=== PATIENT | female | born 1955 | race African-American/Black ===

== ENCOUNTER 2021-04-23 11:36 | Inpatient (IN) | payer MEDICARE, MEDICAID ==
[~2021-04-23 11:36] MED LIST: Rocuronium Bromide 10 MG/ML (10ML VIAL) ONE
[2021-04-23] MEDS ORDERED: Rocuronium Bromide 10 MG/ML (10ML VIAL) ONE (11:50)
[2021-04-23 12:03] LABS: #Monocytes 1.2 10x3/uL (0.0-1.1); #Neutrophils 9.5 10x3/uL (1.5-8.4); %Basophils 0.2 % (0.0-2.0); %Lymphocytes 7.3 % (18.0-47.0); %Monocytes 10.5 % (0.0-10.0); %Neutrophils 80.4 % (40.0-75.0); Hemoglobin 13.2 g/dL (12.0-15.5); Mean Corpuscular HGB CONC 32.6 g/dL (32.0-36.0); Mean Corpuscular Volume 98.1 fl (81.6-98.3); Mean Platelet Volume 12.9 fl (7.4-10.4); Platelet Count 237 10x3/uL (150-450); RBC Distribution Width 15.1 % (11.5-14.5); Red Blood Cell (RBC) Count 4.13 10x6/uL (3.90-5.03); White Blood Cell (WBC) Count 11.8 10x3/uL (3.5-10.5)
[2021-04-23] MEDS ORDERED: Acetaminophen 650 MG Suppository ONE (12:13)
[2021-04-23] MEDS ORDERED: Cefepime 2 GM VIAL ONE (12:15)
[2021-04-23] MEDS ORDERED: Propofol 1,000 MG/100 ML VIAL IV ONE ×2 (12:15→15:55)
[2021-04-23] MEDS ORDERED: levETIRAcetam in NS 1,500 MG in Premix Bag 1 BAG IVPB SCH (12:15)
[2021-04-23 12:29] LABS: Magnesium 2.9 mg/dL (1.6-2.6)
[2021-04-23 12:30] LABS: Acetaminophen Less than 6.0 mcg/mL (10.0-30.0); Alcohol Less than 10 mg/dL (Less than 10); Salicylate Less than 8.0 mg/dL (15.0-30.0)
[2021-04-23 12:31] LABS: INR-International Normal Ratio 1.1; PTT 24.8 sec (22.0-33.0)
[2021-04-23 12:34] LABS: ALT (SGPT) 19 U/L (8-55); AST (SGOT) 48 U/L (5-34); Albumin 3.6 g/dL (3.4-4.8); Alkaline Phosphatase 136 U/L (40-110); Anion Gap 33 mmol/L (10-20); BUN (Urea Nitrogen) 41 mg/dL (9.8-20.1); Bilirubin, Total 1.1 mg/dL (0.2-1.2); CK (CPK) 3666 U/L (29-168); Calc. Creatinine Clearance 0 mL/min (70-130); Calcium 9.2 mg/dL (7.8-10.44); Carbon Dioxide 12 mmol/L (23-31); Chloride 96 mmol/L (98-107); Globulin 5.4 g/dL (2.4-3.5); Potassium 5.1 mmol/L (3.5-5.1); Sodium 136 mmol/L (136-145)
[2021-04-23 12:39] LABS: Actual Bicarbonate (HCO3a) 14.8 mEq/L (22-28); CO2 Tension 33.1 mmHg (35.0-45.0); Calcium, Ionized (arterial) 1.18 mmol/L (1.12-1.30); Hemoglobin (Hb) 13.3 g/dL (12.0-16.0); O2 Tension (PaO2), arterial 142.1 mmHg (> 80.0); Potassium - ABG Lab 4.6 mmol/L (3.70-5.30); Puncture Site RRA; pH, Arterial 7.27 (7.35-7.45)
[2021-04-23 12:41] LABS: Glucose 1230 mg/dL (80-115)
[2021-04-23 12:43] LABS: ALV-art Gradient 529.525 mmHg (0-20)
[2021-04-23 13:03] LABS: CKMB 7.8 ng/mL (0-6.6)
[2021-04-23] MEDS ORDERED: INSULIN REGULAR IN 0.9 % NACL 100 UNIT/100 ML BAG ONE (13:48)
[2021-04-23] MEDS ORDERED: Insulin Regular 300 UNITS/3 ML VIAL ONE (13:50)
[2021-04-23 14:02] LABS: Amphetamine Not Detected (NotDetected); Barbiturates Screen Not Detected (NotDetected); Benzodiazepine Screen Not Detected (NotDetected); Cocaine Metabolite Screen Not Detected (NotDetected); Methadone Not Detected (NotDetected); Methamphetamine Not Detected (NotDetected); Opiate Screen Not Detected (NotDetected); Oxycodone Screen Not Detected (NotDetected); Phencyclidine (PCP) Not Detected (NotDetected); THC/Cannabinoid Screen Not Detected (NotDetected); Tricyclic Screen Not Detected (NotDetected)
[2021-04-23] MEDS ORDERED: Fentanyl 100 MCG/2 ML VIAL ONE (14:16)
[2021-04-23 14:28] LABS: Bilirubin Neg (Negative); Blood, Urine 250 (Negative); Clarity Clear (Clear); Glucose, Urine (Dipstick) >=1000 mg/dL (Negative); Ketone, Urine Negative (Negative); Leukocyte Negative (Negative); Nitrite Negative (Negative); Protein, Urine (Dipstick) 100 mg/dl (Neg-Trace); Urobilinogen Normal mg/dL (Less than 2)
[2021-04-23 14:30] LABS: SARS-CoV-2 NAA Rapid Test Not Detected (NotDetected)
[2021-04-23] MEDS ORDERED: Ondansetron PF 4 MG/2 ML Vial IVP PRN (14:34)
[2021-04-23] MEDS ORDERED: Acetaminophen 650 MG Suppository PR PRN (14:34)
[2021-04-23 14:36] LABS: Bacteria/HPF Rare-Few HPF (None Seen); Squamous Epithelial 0-3 HPF (0-3); WBC/HPF 0-3 HPF (0-3)
[2021-04-23] MEDS ORDERED: hydrALAZINE 20 MG/ML VIAL ONE (14:36)
[2021-04-23] MEDS ORDERED: Sodium Chloride 0.9% 1,000 ML IV PRN ×4 (14:53)
[2021-04-23] MEDS ORDERED: Dextrose 5 %-0.45 % NaCl 1,000 ML IV PRN (14:53)
[2021-04-23] MEDS ORDERED: D5 1/2 NS w/20 mEq KCL 1,000 ML IV PRN (14:53)
[2021-04-23] MEDS ORDERED: Electrolyte Replacement Protocol 1 EACH IVPB ONE (14:53)
[2021-04-23] MEDS ORDERED: NS 0.9% w/ 20 MEQ KCL 1,000 ML IV PRN ×2 (14:53)
[2021-04-23 15:06] LABS: Anion Gap 25 mmol/L (10-20); BUN (Urea Nitrogen) 45 mg/dL (9.8-20.1); Calc. Creatinine Clearance 0 mL/min (70-130); Carbon Dioxide 14 mmol/L (23-31); Chloride 102 mmol/L (98-107); Potassium 4.3 mmol/L (3.5-5.1); Sodium 137 mmol/L (136-145)
[2021-04-23 15:07] LABS: Calcium 8.9 mg/dL (7.8-10.44)
[2021-04-23 15:38] LABS: Glucose 1154 mg/dL (80-115)
[2021-04-23] MEDS ORDERED: Metoprolol Tartrate 25 MG TAB PO SCH (16:45)
[2021-04-23 17:44] LABS: Legionella Urinary Ag Negative (Negative); Strep pneumo Urine Ag NEGATIVE (NEGATIVE)
[2021-04-23 17:51] LABS: Glucose 811 mg/dL (80-115)
[2021-04-23] MEDS ORDERED: Norepinephrine 8 MG/0.9% NS 250 ML IVPB SCH (18:00)
[2021-04-23] MEDS ORDERED: Amiodarone In Dextrose 150 MG in Premix Bag 1 BAG IVPB SCH (18:00)
[2021-04-23] MEDS: Amiodarone In Dextrose 360 MG in Premix Bag 1 BAG IVPB SCH (18:19)
[2021-04-23 18:21] LABS: Troponin I 0.317 ng/mL (< 0.028)
[2021-04-23] MEDS ORDERED: Propofol 1,000 MG/100 ML VIAL IV SCH ×2 (18:30→19:30)
[2021-04-23] MEDS: INSULIN REGULAR IN 0.9 % NACL 100 UNIT in Premix Bag 1 BAG IVPB SCH ×2 (18:43→23:24)
[2021-04-23] MEDS: Midazolam In 0.9 % NaCl/PF 100 ML IVPB SCH (18:43)
[2021-04-23] MEDS: Sodium Chloride 0.9% 1,000 ML IV SCH ×2 (18:44→21:00)
[2021-04-23] MEDS ORDERED: levETIRAcetam in NS 1,000 MG in Premix Bag 1 BAG IVPB SCH (18:45)
[2021-04-23 18:54] LABS: Phosphorus 3.5 mg/dL (2.3-4.7)
[2021-04-23 18:56] LABS: Anion Gap 20 mmol/L (10-20); BUN (Urea Nitrogen) 45 mg/dL (9.8-20.1); Calc. Creatinine Clearance 28 mL/min (70-130); Calcium 8.4 mg/dL (7.8-10.44); Carbon Dioxide 18 mmol/L (23-31); Chloride 110 mmol/L (98-107); Magnesium 2.5 mg/dL (1.6-2.6); Sodium 145 mmol/L (136-145)
[2021-04-23 19:00] LABS: Glucose 700 mg/dL (80-115); Potassium 2.9 mmol/L (3.5-5.1)
[2021-04-23] MEDS ORDERED: Vancomycin HCl 1 GM in Sodium Chloride 0.9% 250 ML 250 ML IVPB PRN (19:18)
[2021-04-23] MEDS ORDERED: Propofol BOLUS 1,000 MG/100 ML VIAL IV PRN (20:00)
[2021-04-23] MEDS ORDERED: Vancomycin HCl 1 GM in Sodium Chloride 0.9% 250 ML 250 ML IVPB SCH (20:00)
[2021-04-23] MEDS ORDERED: Potassium Chloride 20 MEQ TAB PO SCH (20:15)
[2021-04-23] MEDS ORDERED: Potassium Chloride 20 MEQ in Premix Bag 1 BAG IVPB SCH (20:15)
[2021-04-23 20:33] LABS: Anion Gap 20 mmol/L (10-20); BUN (Urea Nitrogen) 45 mg/dL (9.8-20.1); Calc. Creatinine Clearance 28 mL/min (70-130); Calcium 8.4 mg/dL (7.8-10.44); Carbon Dioxide 17 mmol/L (23-31); Chloride 112 mmol/L (98-107); Glucose 530 mg/dL (80-115); Potassium 3.1 mmol/L (3.5-5.1); Sodium 146 mmol/L (136-145)
[2021-04-23] MEDS ORDERED: Heparin 5,000 UNITS/ML VIAL SC SCH (21:00)
[2021-04-23] MEDS: Famotidine/PF 20 mg/2ml Vial SLOW IVP SCH (21:14)
[2021-04-23] MEDS: Azithromycin 500 MG in Sodium Chloride 0.9% 250 ML 250 ML IVPB SCH (21:14)
[2021-04-23] MEDS: Metoprolol Tartrate 25 MG TAB PO SCH (21:15)
[2021-04-23] MEDS ORDERED: Potassium Chloride 10 MEQ in Premix Bag 1 BAG IVPB SCH (22:00)
[2021-04-23 22:22] LABS: Glucose 435 mg/dL (80-115)
[2021-04-24] MEDS: Amiodarone In Dextrose 360 MG in Premix Bag 1 BAG IVPB SCH (00:40)
[2021-04-24] MEDS: Propofol 1,000 MG/100 ML VIAL IV PRN ×5 (01:26→22:53)
[2021-04-24 01:51] LABS: Anion Gap 19 mmol/L (10-20); BUN (Urea Nitrogen) 46 mg/dL (9.8-20.1); Calc. Creatinine Clearance 30 mL/min (70-130); Calcium 8.2 mg/dL (7.8-10.44); Carbon Dioxide 17 mmol/L (23-31); Chloride 114 mmol/L (98-107); Glucose 350 mg/dL (80-115); Magnesium 2.2 mg/dL (1.6-2.6); Potassium 3.8 mmol/L (3.5-5.1); Sodium 146 mmol/L (136-145)
[2021-04-24 01:57] LABS: Troponin I 0.307 ng/mL (< 0.028)
[2021-04-24] MEDS: Sodium Chloride 0.9% 1,000 ML IV SCH ×5 (02:00→19:36)
[2021-04-24] MEDS ORDERED: Heparin 25,000 units/D5W 500 ML IVPB SCH (02:15)
[2021-04-24] MEDS ORDERED: Heparin 10,000 UNITS/ 10 ML VIAL SLOW IVP SCH (02:15)
[2021-04-24] MEDS ORDERED: Sodium Chloride 0.9% 1,000 ML IV SCH (02:15)
[2021-04-24 04:53] LABS: Mean Corpuscular HGB CONC 33.4 g/dL (32.0-36.0); Mean Corpuscular Hemoglobin 31.3 pg (27.0-33.0); Mean Corpuscular Volume 93.7 fl (81.6-98.3); Mean Platelet Volume 11.8 fl (7.4-10.4); Platelet Count 149 10x3/uL (150-450); RBC Distribution Width 14.5 % (11.5-14.5); Red Blood Cell (RBC) Count 3.51 10x6/uL (3.90-5.03); White Blood Cell (WBC) Count 12.3 10x3/uL (3.5-10.5)
[2021-04-24 04:57] LABS: ALT (SGPT) 27 U/L (8-55); AST (SGOT) 105 U/L (5-34); Albumin 2.7 g/dL (3.4-4.8); Alkaline Phosphatase 90 U/L (40-110); Anion Gap 16 mmol/L (10-20); BUN (Urea Nitrogen) 46 mg/dL (9.8-20.1); Bilirubin, Total 0.4 mg/dL (0.2-1.2); Calc. Creatinine Clearance 29 mL/min (70-130); Calcium 8.2 mg/dL (7.8-10.44); Carbon Dioxide 19 mmol/L (23-31); Chloride 115 mmol/L (98-107); Globulin 4.7 g/dL (2.4-3.5); Glucose 295 mg/dL (80-115); Potassium 3.3 mmol/L (3.5-5.1); Protein, Total 7.4 g/dL (5.8-8.1); Sodium 147 mmol/L (136-145)
[2021-04-24 05:15] LABS: MDiff Complete? YES
[2021-04-24 05:19] LABS: Band 12 % (5-11); Lymphocytes 20 % (21-51); Monocytes 3 % (0-10); Neutrophil 65 % (42-75)
[2021-04-24 05:20] LABS: Platelet Morphology Comment Appears Adequate; RBC Morphology Normal
[2021-04-24 05:21] LABS: CK (CPK) 9275 U/L (29-168)
[2021-04-24 07:53] LABS: Actual Bicarbonate (HCO3a) 18.6 mEq/L (22-28); Base Excess (BEa) -5.1 mEq/L (-2.0 to +3.0); CO2 Tension 30.7 mmHg (35.0-45.0); Calcium, Ionized (arterial) 1.12 mmol/L (1.12-1.30); Carboxyhemoglobin (COHb) 0.3 gm% (0.0-3.0); O2 Tension (PaO2), arterial 71.5 mmHg (> 80.0); Potassium - ABG Lab 3.3 mmol/L (3.70-5.30); Puncture Site LRA
[2021-04-24 07:54] LABS: ALV-art Gradient 175.325 mmHg (0-20)
[2021-04-24 08:40] LABS: Anion Gap 18 mmol/L (10-20); BUN (Urea Nitrogen) 46 mg/dL (9.8-20.1); Calc. Creatinine Clearance 29 mL/min (70-130); Calcium 8.2 mg/dL (7.8-10.44); Carbon Dioxide 18 mmol/L (23-31); Chloride 116 mmol/L (98-107); Glucose 204 mg/dL (80-115); Potassium 3.5 mmol/L (3.5-5.1); Sodium 148 mmol/L (136-145)
[2021-04-24] MEDS: Metoprolol Tartrate 25 MG TAB PO SCH ×3 (09:10→20:07)
[2021-04-24] MEDS: levETIRAcetam in NS 1,000 MG in Premix Bag 1 BAG IVPB SCH ×2 (09:10→20:07)
[2021-04-24] MEDS: Midazolam In 0.9 % NaCl/PF 100 ML IVPB SCH (09:30)
[2021-04-24] MEDS: Dextrose 5 %-0.45 % NaCl 1,000 ML IV SCH ×2 (10:54→20:08)
[2021-04-24] MEDS: Cefepime 2 GM in Sodium Chloride 0.9% 100 ML IVPB SCH (12:20)
[2021-04-24 12:42] LABS: Anion Gap 17 mmol/L (10-20); BUN (Urea Nitrogen) 47 mg/dL (9.8-20.1); Calc. Creatinine Clearance 28 mL/min (70-130); Calcium 8.2 mg/dL (7.8-10.44); Carbon Dioxide 18 mmol/L (23-31); Chloride 117 mmol/L (98-107); Glucose 169 mg/dL (80-115); Potassium 3.7 mmol/L (3.5-5.1); Sodium 148 mmol/L (136-145)
[2021-04-24 13:53] LABS: Vancomycin, Random 22.7 ug/mL (See Comment)
[2021-04-24 16:28] LABS: Anion Gap 18 mmol/L (10-20); BUN (Urea Nitrogen) 48 mg/dL (9.8-20.1); Calc. Creatinine Clearance 26 mL/min (70-130); Calcium 8.2 mg/dL (7.8-10.44); Carbon Dioxide 17 mmol/L (23-31); Chloride 115 mmol/L (98-107); Glucose 250 mg/dL (80-115); Potassium 3.7 mmol/L (3.5-5.1); Sodium 146 mmol/L (136-145)
[2021-04-24] MEDS: Famotidine/PF 20 mg/2ml Vial SLOW IVP SCH (20:07)
[2021-04-24] MEDS: Azithromycin 500 MG in Sodium Chloride 0.9% 250 ML 250 ML IVPB SCH (20:10)
[2021-04-24] MEDS: INSULIN REGULAR IN 0.9 % NACL 100 UNIT in Premix Bag 1 BAG IVPB SCH (20:58)
[2021-04-24 22:12] LABS: Bilirubin Neg (Negative); Blood, Urine 250 (Negative); Clarity Clear (Clear); Glucose, Urine (Dipstick) 50 mg/dL (Negative); Ketone, Urine Negative (Negative); Leukocyte 25 (Negative); Nitrite Negative (Negative); Protein, Urine (Dipstick) 30 mg/dl (Neg-Trace); Urobilinogen Normal mg/dL (Less than 2)
[2021-04-24 22:20] LABS: Bacteria/HPF Rare-Few HPF (None Seen); Squamous Epithelial 0-3 HPF (0-3)
[2021-04-24 22:22] LABS: Anion Gap 16 mmol/L (10-20); BUN (Urea Nitrogen) 49 mg/dL (9.8-20.1); Calc. Creatinine Clearance 25 mL/min (70-130); Carbon Dioxide 17 mmol/L (23-31); Chloride 116 mmol/L (98-107); Glucose 183 mg/dL (80-115); Potassium 3.3 mmol/L (3.5-5.1); Sodium 146 mmol/L (136-145)
[2021-04-25] MEDS: Sodium Chloride 0.9% 1,000 ML IV SCH ×5 (01:57→20:44)
[2021-04-25] MEDS: hydrALAZINE 20 MG/ML VIAL SLOW IVP PRN ×2 (01:59→09:44)
[2021-04-25] MEDS ORDERED: Furosemide 100 MG/10 ML VIAL SLOW IVP SCH (04:30)
[2021-04-25 04:32] LABS: Hemoglobin 10.7 g/dL (12.0-15.5); Mean Corpuscular HGB CONC 33.2 g/dL (32.0-36.0); Mean Corpuscular Hemoglobin 31.1 pg (27.0-33.0); Mean Corpuscular Volume 93.6 fl (81.6-98.3); Mean Platelet Volume 12.2 fl (7.4-10.4); Platelet Count 160 10x3/uL (150-450); RBC Distribution Width 14.9 % (11.5-14.5); Red Blood Cell (RBC) Count 3.44 10x6/uL (3.90-5.03); White Blood Cell (WBC) Count 14.8 10x3/uL (3.5-10.5)
[2021-04-25 04:33] LABS: ALT (SGPT) 70 U/L (8-55); AST (SGOT) 226 U/L (5-34); Albumin 2.5 g/dL (3.4-4.8); Alkaline Phosphatase 103 U/L (40-110); Anion Gap 17 mmol/L (10-20); BUN (Urea Nitrogen) 51 mg/dL (9.8-20.1); Bilirubin, Total 0.5 mg/dL (0.2-1.2); Calc. Creatinine Clearance 24 mL/min (70-130); Calcium 8.3 mg/dL (7.8-10.44); Carbon Dioxide 16 mmol/L (23-31); Chloride 116 mmol/L (98-107); Globulin 4.7 g/dL (2.4-3.5); Glucose 228 mg/dL (80-115); Magnesium 1.9 mg/dL (1.6-2.6); Potassium 3.6 mmol/L (3.5-5.1); Protein, Total 7.2 g/dL (5.8-8.1); Sodium 145 mmol/L (136-145)
[2021-04-25 04:34] LABS: Cardiac Risk 6.3 (Less than 4.5); Cholesterol 157 mg/dl (< 200 Desired); HDL Cholesterol 25 mg/dL (>60 Neg Risk); LDL Cholesterol, Calculated 79 mg/dL; Phosphorus 2.6 mg/dL (2.3-4.7); Triglycerides 263 mg/dL (Less than 150)
[2021-04-25 04:44] LABS: CK (CPK) 6188 U/L (29-168)
[2021-04-25 04:48] LABS: MDiff Complete? YES
[2021-04-25 04:59] LABS: Band 8 % (5-11); Lymphocytes 7 % (21-51); Monocytes 6 % (0-10); Neutrophil 79 % (42-75)
[2021-04-25 05:01] LABS: Platelet Morphology Comment Appears Adequate; RBC Morphology Normal
[2021-04-25] MEDS: Dextrose 5 %-0.45 % NaCl 1,000 ML IV SCH ×2 (06:21→13:58)
[2021-04-25] MEDS: Albumin 25% 25 GM/100 ML BOT IVPB SCH ×4 (06:21→23:20)
[2021-04-25] MEDS: levETIRAcetam in NS 1,000 MG in Premix Bag 1 BAG IVPB SCH ×2 (07:53→20:50)
[2021-04-25] MEDS: Metoprolol Tartrate 25 MG TAB PO SCH ×3 (07:54→20:50)
[2021-04-25] MEDS: NPH, Human Insulin Isophane 300 UNIT/3 ML VIAL SC SCH ×4 (07:54→23:20)
[2021-04-25] MEDS ORDERED: FLU VACC QS2021-22(65YR UP)/PF 240 MCG/0.7 ML SYRINGE IM ONE (09:00)
[2021-04-25] MEDS: Propofol 1,000 MG/100 ML VIAL IV PRN (09:46)
[2021-04-25] MEDS ORDERED: Potassium Chloride 20 MEQ TAB PO SCH (10:15)
[2021-04-25] MEDS: Cefepime 2 GM in Sodium Chloride 0.9% 100 ML IVPB SCH (11:30)
[2021-04-25] MEDS: HumaLOG 300 UNITS/3 ML VIAL SC PRN ×2 (11:53→23:28)
[2021-04-25] MEDS: Dexmedetomidine In 0.9 % NaCl 100 ML IVPB SCH ×2 (11:53→20:32)
[2021-04-25 15:10] LABS: Vancomycin, Random 15.7 ug/mL (See Comment)
[2021-04-25] MEDS ORDERED: Vancomycin HCl 750 MG in Sodium Chloride 0.9% 250 ML 250 ML IVPB SCH (17:00)
[2021-04-25] MEDS: Azithromycin 500 MG in Sodium Chloride 0.9% 250 ML 250 ML IVPB SCH (20:43)
[2021-04-25] MEDS: Famotidine/PF 20 mg/2ml Vial SLOW IVP SCH (20:48)
[2021-04-26 03:50] LABS: #Eosinphils 0.1 10x3/uL (0.0-0.5); #Monocytes 0.6 10x3/uL (0.0-1.1); #Neutrophils 7.5 10x3/uL (1.5-8.4); %Basophils 0.3 % (0.0-2.0); %Eosinophils 1.1 % (0.0-6.0); %Lymphocytes 12.6 % (18.0-47.0); %Monocytes 6.6 % (0.0-10.0); %Neutrophils 78.3 % (40.0-75.0); Hemoglobin 8.4 g/dL (12.0-15.5); Mean Corpuscular HGB CONC 34.3 g/dL (32.0-36.0); Mean Corpuscular Hemoglobin 32.1 pg (27.0-33.0); Mean Corpuscular Volume 93.5 fl (81.6-98.3); Mean Platelet Volume 12.8 fl (7.4-10.4); Platelet Count 117 10x3/uL (150-450); RBC Distribution Width 15.4 % (11.5-14.5); Red Blood Cell (RBC) Count 2.62 10x6/uL (3.90-5.03); White Blood Cell (WBC) Count 9.5 10x3/uL (3.5-10.5)
[2021-04-26 03:57] LABS: Anion Gap 16 mmol/L (10-20); BUN (Urea Nitrogen) 59 mg/dL (9.8-20.1); CK (CPK) 3159 U/L (29-168); Calc. Creatinine Clearance 22 mL/min (70-130); Calcium 8.3 mg/dL (7.8-10.44); Carbon Dioxide 17 mmol/L (23-31); Chloride 117 mmol/L (98-107); Glucose 354 mg/dL (80-115); Potassium 3.7 mmol/L (3.5-5.1); Sodium 146 mmol/L (136-145)
[2021-04-26] MEDS: Sodium Chloride 0.9% 1,000 ML IV SCH ×4 (05:16→20:47)
[2021-04-26] MEDS: Dextrose 5 %-0.45 % NaCl 1,000 ML IV SCH (05:17)
[2021-04-26] MEDS: NPH, Human Insulin Isophane 300 UNIT/3 ML VIAL SC SCH ×4 (05:18→23:38)
[2021-04-26] MEDS: HumaLOG 300 UNITS/3 ML VIAL SC PRN ×2 (06:19→23:38)
[2021-04-26] MEDS: Albumin 25% 25 GM/100 ML BOT IVPB SCH ×3 (07:49→18:30)
[2021-04-26] MEDS: Metoprolol Tartrate 25 MG TAB PO SCH ×3 (07:49→20:45)
[2021-04-26] MEDS: levETIRAcetam in NS 1,000 MG in Premix Bag 1 BAG IVPB SCH ×2 (07:49→20:45)
[2021-04-26 08:40] LABS: Actual Bicarbonate (HCO3a) 16.3 mEq/L (22-28); Base Excess (BEa) -8.4 mEq/L (-2.0 to +3.0); CO2 Tension 30.9 mmHg (35.0-45.0); Calcium, Ionized (arterial) 1.17 mmol/L (1.12-1.30); Carboxyhemoglobin (COHb) 0.3 gm% (0.0-3.0); Hemoglobin (Hb) 9.7 g/dL (12.0-16.0); O2 Tension (PaO2), arterial 117.9 mmHg (> 80.0); Potassium - ABG Lab 3.5 mmol/L (3.70-5.30); Puncture Site LRA; pH, Arterial 7.34 (7.35-7.45)
[2021-04-26 08:44] LABS: ALV-art Gradient 128.675 mmHg (0-20)
[2021-04-26] MEDS: Cefepime 2 GM in Sodium Chloride 0.9% 100 ML IVPB SCH (11:23)
[2021-04-26] MEDS: hydrALAZINE 20 MG/ML VIAL SLOW IVP PRN (15:06)
[2021-04-26] MEDS: Dexmedetomidine In 0.9 % NaCl 100 ML IVPB SCH ×2 (15:40→20:46)
[2021-04-26 17:17] LABS: Vancomycin, Random 20.5 ug/mL (See Comment)
[2021-04-26] MEDS: Azithromycin 500 MG in Sodium Chloride 0.9% 250 ML 250 ML IVPB SCH (20:39)
[2021-04-26] MEDS: Famotidine/PF 20 mg/2ml Vial SLOW IVP SCH (20:45)
[2021-04-26] MEDS: Lorazepam 2 MG/ML VIAL SLOW IVP PRN (22:58)
[2021-04-27] MEDS: Dexmedetomidine In 0.9 % NaCl 100 ML IVPB SCH ×3 (01:23→18:00)
[2021-04-27] MEDS: Albumin 25% 25 GM/100 ML BOT IVPB SCH (01:23)
[2021-04-27] MEDS: Sodium Chloride 0.9% 1,000 ML IV SCH ×2 (02:47→08:14)
[2021-04-27 04:14] LABS: Hemoglobin 8.6 g/dL (12.0-15.5); Mean Corpuscular HGB CONC 33.5 g/dL (32.0-36.0); Mean Corpuscular Hemoglobin 31.5 pg (27.0-33.0); Mean Corpuscular Volume 94.1 fl (81.6-98.3); Mean Platelet Volume 12.8 fl (7.4-10.4); Platelet Count 122 10x3/uL (150-450); RBC Distribution Width 15.7 % (11.5-14.5); Red Blood Cell (RBC) Count 2.73 10x6/uL (3.90-5.03); White Blood Cell (WBC) Count 10.2 10x3/uL (3.5-10.5)
[2021-04-27 04:23] LABS: Anion Gap 15 mmol/L (10-20); BUN (Urea Nitrogen) 60 mg/dL (9.8-20.1); CK (CPK) 2000 U/L (29-168); Calc. Creatinine Clearance 23 mL/min (70-130); Calcium 8.4 mg/dL (7.8-10.44); Carbon Dioxide 14 mmol/L (23-31); Chloride 123 mmol/L (98-107); Glucose 233 mg/dL (80-115); Potassium 3.5 mmol/L (3.5-5.1); Sodium 148 mmol/L (136-145)
[2021-04-27 04:27] LABS: MDiff Complete? YES
[2021-04-27 04:30] LABS: Band 3 % (5-11); Eosinophils 1 % (0-10); Lymphocytes 10 % (21-51); Monocytes 8 % (0-10); Neutrophil 78 % (42-75)
[2021-04-27 04:31] LABS: Hypochromia SLIGHT = 6-15 cells (100X) (0-5/hpf); Platelet Morphology Comment Appears Adequate
[2021-04-27] MEDS: HumaLOG 300 UNITS/3 ML VIAL SC PRN (06:09)
[2021-04-27] MEDS: NPH, Human Insulin Isophane 300 UNIT/3 ML VIAL SC SCH ×4 (06:09→23:54)
[2021-04-27] MEDS: Metoprolol Tartrate 25 MG TAB PO SCH ×3 (08:14→19:16)
[2021-04-27] MEDS: levETIRAcetam in NS 1,000 MG in Premix Bag 1 BAG IVPB SCH ×2 (08:14→19:17)
[2021-04-27] MEDS ORDERED: SODIUM CHLORIDE IV SCH ×2 (08:30→14:30)
[2021-04-27] MEDS ORDERED: SODIUM BICARBONATE IV SCH ×2 (08:30→14:30)
[2021-04-27] MEDS ORDERED: ADMIXTURE FEE IV SCH ×2 (08:30→14:30)
[2021-04-27] MEDS: hydrALAZINE 20 MG/ML VIAL SLOW IVP PRN (10:53)
[2021-04-27] MEDS: Cefepime 2 GM in Sodium Chloride 0.9% 100 ML IVPB SCH (12:03)
[2021-04-27] MEDS: Lorazepam 2 MG/ML VIAL SLOW IVP PRN (12:03)
[2021-04-27 17:00] LABS: Vancomycin, Random 16.5 ug/mL (See Comment)
[2021-04-27] MEDS: Azithromycin 500 MG in Sodium Chloride 0.9% 250 ML 250 ML IVPB SCH (19:12)
[2021-04-27] MEDS: Famotidine/PF 20 mg/2ml Vial SLOW IVP SCH (19:17)
[2021-04-27] MEDS ORDERED: Vancomycin HCl 500 MG in Sodium Chloride 0.9% 250 ML 250 ML IVPB SCH (20:00)
[2021-04-27] MEDS: SODIUM BICARBONATE IV SCH (21:41)
[2021-04-27] MEDS: ADMIXTURE FEE IV SCH (21:41)
[2021-04-27] MEDS: SODIUM CHLORIDE IV SCH (21:41)
[2021-04-28] MEDS: Dexmedetomidine In 0.9 % NaCl 100 ML IVPB SCH ×5 (00:17→18:33)
[2021-04-28] MEDS: SODIUM BICARBONATE IV SCH ×4 (02:43→21:41)
[2021-04-28] MEDS: ADMIXTURE FEE IV SCH ×4 (02:43→21:41)
[2021-04-28] MEDS: SODIUM CHLORIDE IV SCH ×4 (02:43→21:41)
[2021-04-28 04:45] LABS: ALT (SGPT) 45 U/L (8-55); AST (SGOT) 62 U/L (5-34); Alkaline Phosphatase 103 U/L (40-110); Anion Gap 14 mmol/L (10-20); BUN (Urea Nitrogen) 56 mg/dL (9.8-20.1); Bilirubin, Direct 0.4 mg/dL (0.1-0.3); Bilirubin, Total 0.6 mg/dL (0.2-1.2); Calc. Creatinine Clearance 25 mL/min (70-130); Calcium 8.3 mg/dL (7.8-10.44); Carbon Dioxide 16 mmol/L (23-31); Chloride 118 mmol/L (98-107); Glucose 162 mg/dL (80-115); Magnesium 1.6 mg/dL (1.6-2.6); Phosphorus 3.6 mg/dL (2.3-4.7); Protein, Total 5.9 g/dL (5.8-8.1); Sodium 145 mmol/L (136-145)
[2021-04-28 04:53] LABS: #Eosinphils 0.1 10x3/uL (0.0-0.5); #Monocytes 1.1 10x3/uL (0.0-1.1); #Neutrophils 8.3 10x3/uL (1.5-8.4); %Basophils 0.2 % (0.0-2.0); %Eosinophils 1.2 % (0.0-6.0); %Lymphocytes 12.5 % (18.0-47.0); %Neutrophils 75.5 % (40.0-75.0); Hemoglobin 8.6 g/dL (12.0-15.5); Mean Corpuscular HGB CONC 33.6 g/dL (32.0-36.0); Mean Corpuscular Hemoglobin 31.7 pg (27.0-33.0); Mean Corpuscular Volume 94.5 fl (81.6-98.3); Platelet Count 146 10x3/uL (150-450); Potassium 2.9 mmol/L (3.5-5.1); RBC Distribution Width 15.3 % (11.5-14.5); Red Blood Cell (RBC) Count 2.71 10x6/uL (3.90-5.03); White Blood Cell (WBC) Count 10.9 10x3/uL (3.5-10.5)
[2021-04-28] MEDS ORDERED: Potassium Chloride 20 MEQ TAB PO SCH (05:30)
[2021-04-28] MEDS: hydrALAZINE 20 MG/ML VIAL SLOW IVP PRN ×2 (05:34→11:46)
[2021-04-28] MEDS: HumaLOG 300 UNITS/3 ML VIAL SC PRN (05:35)
[2021-04-28] MEDS: NPH, Human Insulin Isophane 300 UNIT/3 ML VIAL SC SCH ×3 (05:36→18:33)
[2021-04-28] MEDS: Potassium Chloride 20 MEQ in Premix Bag 1 BAG IVPB SCH ×2 (06:03→08:30)
[2021-04-28] MEDS: Magnesium 2 GM/50 ML 2 GM in Premix Bag 1 BAG IVPB SCH ×2 (06:52→08:30)
[2021-04-28] MEDS: Lorazepam 2 MG/ML VIAL SLOW IVP PRN (07:58)
[2021-04-28] MEDS: Labetalol HCl 100 MG/20 ML VIAL SLOW IVP PRN (08:17)
[2021-04-28] MEDS: levETIRAcetam in NS 1,000 MG in Premix Bag 1 BAG IVPB SCH ×2 (08:29→21:32)
[2021-04-28] MEDS: Metoprolol Tartrate 25 MG TAB PO SCH ×3 (09:45→21:32)
[2021-04-28] MEDS: Cefepime 2 GM in Sodium Chloride 0.9% 100 ML IVPB SCH (11:46)
[2021-04-28 17:35] LABS: Vancomycin, Random 17.6 ug/mL (See Comment)
[2021-04-28] MEDS: Azithromycin 500 MG in Sodium Chloride 0.9% 250 ML 250 ML IVPB SCH (20:42)
[2021-04-28] MEDS: Famotidine/PF 20 mg/2ml Vial SLOW IVP SCH (21:32)
[2021-04-29] MEDS: NPH, Human Insulin Isophane 300 UNIT/3 ML VIAL SC SCH ×4 (00:05→17:16)
[2021-04-29] MEDS: SODIUM CHLORIDE IV SCH ×4 (02:58→20:48)
[2021-04-29] MEDS: SODIUM BICARBONATE IV SCH ×4 (02:58→20:48)
[2021-04-29] MEDS: ADMIXTURE FEE IV SCH ×4 (02:58→20:48)
[2021-04-29 04:10] LABS: Anion Gap 15 mmol/L (10-20); BUN (Urea Nitrogen) 55 mg/dL (9.8-20.1); Calc. Creatinine Clearance 27 mL/min (70-130); Calcium 8.6 mg/dL (7.8-10.44); Carbon Dioxide 17 mmol/L (23-31); Chloride 119 mmol/L (98-107); Glucose 113 mg/dL (80-115); Potassium 3.4 mmol/L (3.5-5.1); Sodium 148 mmol/L (136-145)
[2021-04-29] MEDS: Labetalol HCl 100 MG/20 ML VIAL SLOW IVP PRN (05:50)
[2021-04-29] MEDS: Dexmedetomidine In 0.9 % NaCl 100 ML IVPB SCH ×7 (05:55→23:42)
[2021-04-29] MEDS ORDERED: Vancomycin HCl 750 MG in Sodium Chloride 0.9% 250 ML 250 ML IVPB SCH (08:00)
[2021-04-29] MEDS: levETIRAcetam in NS 1,000 MG in Premix Bag 1 BAG IVPB SCH ×2 (08:21→20:49)
[2021-04-29] MEDS: Metoprolol Tartrate 25 MG TAB PO SCH ×3 (08:21→20:49)
[2021-04-29 08:47] LABS: Actual Bicarbonate (HCO3a) 17.6 mEq/L (22-28); CO2 Tension 28.2 mmHg (35.0-45.0); Calcium, Ionized (arterial) 1.14 mmol/L (1.12-1.30); Carboxyhemoglobin (COHb) 0.3 gm% (0.0-3.0); O2 Tension (PaO2), arterial 97.4 mmHg (> 80.0); Potassium - ABG Lab 3.3 mmol/L (3.70-5.30); Puncture Site LRA; pH, Arterial 7.41 (7.35-7.45)
[2021-04-29] MEDS: Cefepime 2 GM in Sodium Chloride 0.9% 100 ML IVPB SCH (11:11)
[2021-04-29] MEDS: hydrALAZINE 20 MG/ML VIAL SLOW IVP PRN ×2 (14:50→23:48)
[2021-04-29] MEDS: Azithromycin 500 MG in Sodium Chloride 0.9% 250 ML 250 ML IVPB SCH (20:48)
[2021-04-29] MEDS: Famotidine/PF 20 mg/2ml Vial SLOW IVP SCH (20:49)
[2021-04-30] MEDS: Labetalol HCl 100 MG/20 ML VIAL SLOW IVP PRN (00:37)
[2021-04-30] MEDS: HumaLOG 300 UNITS/3 ML VIAL SC PRN (00:39)
[2021-04-30] MEDS: NPH, Human Insulin Isophane 300 UNIT/3 ML VIAL SC SCH ×4 (00:39→16:42)
[2021-04-30] MEDS ORDERED: Fentanyl 100 MCG/2 ML VIAL SLOW IVP PRN (00:58)
[2021-04-30] MEDS: Midazolam HCl 2 mg/2 ml Vial SLOW IVP PRN ×3 (01:04→05:36)
[2021-04-30] MEDS: Dexmedetomidine In 0.9 % NaCl 100 ML IVPB SCH ×7 (01:53→17:38)
[2021-04-30] MEDS: SODIUM BICARBONATE IV SCH ×6 (01:54→22:38)
[2021-04-30] MEDS: SODIUM CHLORIDE IV SCH ×6 (01:54→22:38)
[2021-04-30] MEDS: ADMIXTURE FEE IV SCH ×6 (01:54→22:38)
[2021-04-30 04:22] LABS: Anion Gap 13 mmol/L (10-20); BUN (Urea Nitrogen) 51 mg/dL (9.8-20.1); Calc. Creatinine Clearance 32 mL/min (70-130); Calcium 8.6 mg/dL (7.8-10.44); Carbon Dioxide 19 mmol/L (23-31); Chloride 116 mmol/L (98-107); Glucose 155 mg/dL (80-115); Potassium 3.1 mmol/L (3.5-5.1); Sodium 145 mmol/L (136-145)
[2021-04-30] MEDS ORDERED: Potassium Chloride 20 MEQ TAB PER TUBE SCH (05:15)
[2021-04-30] MEDS ORDERED: Potassium Bicarbonate/Cit Ac 20 MEQ TAB PER TUBE SCH (05:45)
[2021-04-30] MEDS: levETIRAcetam in NS 1,000 MG in Premix Bag 1 BAG IVPB SCH ×2 (07:39→21:13)
[2021-04-30] MEDS: Metoprolol Tartrate 25 MG TAB PO SCH ×3 (07:40→21:13)
[2021-04-30] MEDS ORDERED: Rocuronium Bromide 10 MG/ML (10ML VIAL) ONE (08:00)
[2021-04-30] MEDS ORDERED: PROPOFOL 200 MG/20 ML VIAL ONE (08:00)
[2021-04-30 08:07] LABS: Actual Bicarbonate (HCO3a) 19.2 mEq/L (22-28); Base Excess (BEa) -4.2 mEq/L (-2.0 to +3.0); CO2 Tension 29.4 mmHg (35.0-45.0); Calcium, Ionized (arterial) 1.14 mmol/L (1.12-1.30); Carboxyhemoglobin (COHb) 0.3 gm% (0.0-3.0); Hemoglobin (Hb) 9.5 g/dL (12.0-16.0); O2 Tension (PaO2), arterial 107.1 mmHg (> 80.0); Potassium - ABG Lab 3.1 mmol/L (3.70-5.30); Puncture Site LRA; pH, Arterial 7.43 (7.35-7.45)
[2021-04-30] MEDS: hydrALAZINE 20 MG/ML VIAL SLOW IVP PRN ×2 (11:27→17:34)
[2021-04-30] MEDS: Scopolamine 1.5 mg/72 hour Patch TD SCH (11:27)
[2021-04-30] MEDS: Lorazepam 2 MG/ML VIAL SLOW IVP PRN ×4 (12:31→20:37)
[2021-04-30 21:07] LABS: pH, Arterial 7.49 (7.35-7.45)
[2021-04-30 21:08] LABS: Actual Bicarbonate (HCO3a) 19.8 mEq/L (22-28); Base Excess (BEa) -2.6 mEq/L (-2.0 to +3.0); CO2 Tension 26.3 mmHg (35.0-45.0); Carboxyhemoglobin (COHb) 0.3 gm% (0.0-3.0); Hemoglobin (Hb) 9.8 g/dL (12.0-16.0); O2 Tension (PaO2), arterial 66.5 mmHg (> 80.0)
[2021-04-30 21:10] LABS: Calcium, Ionized (arterial) 1.12 mmol/L (1.12-1.30); Potassium - ABG Lab 3.1 mmol/L (3.70-5.30)
[2021-04-30 21:11] LABS: Puncture Site RRA
[2021-04-30 21:12] LABS: ALV-art Gradient 50.355 mmHg (0-20)
[2021-04-30] MEDS: Famotidine/PF 20 mg/2ml Vial SLOW IVP SCH (21:13)
[2021-04-30] MEDS ORDERED: DISCONTINUE PREVIOUS NARCOTIC PAIN MEDICATIONS AND BENZODIAZEPINES FS SCH (21:15)
[2021-04-30 21:18] LABS: Anion Gap 14 mmol/L (10-20); BUN (Urea Nitrogen) 47 mg/dL (9.8-20.1); Calc. Creatinine Clearance 35 mL/min (70-130); Calcium 8.8 mg/dL (7.8-10.44); Carbon Dioxide 21 mmol/L (23-31); Chloride 113 mmol/L (98-107); Glucose 74 mg/dL (80-115); Potassium 3.1 mmol/L (3.5-5.1); Sodium 145 mmol/L (136-145)
[2021-04-30] MEDS ORDERED: Ventilator Sedation Protocol 1 EACH FS SCH ×2 (21:30)
[2021-04-30] MEDS ORDERED: Propofol BOLUS 1,000 MG/100 ML VIAL IV PRN (21:30)
[2021-04-30] MEDS ORDERED: Morphine 2 MG/ML VIAL SLOW IVP PRN (21:30)
[2021-04-30] MEDS ORDERED: Fentanyl BOLUS 250 ML IVPB PRN (21:30)
[2021-04-30] MEDS: Propofol 1,000 MG/100 ML VIAL IV PRN (21:43)
[2021-04-30] MEDS: fentaNYL Citrate-0.9 % NaCl/PF 100 ML IVPB SCH (21:44)
[2021-04-30 23:38] LABS: Actual Bicarbonate (HCO3a) 20.9 mEq/L (22-28); Base Excess (BEa) -2.4 mEq/L (-2.0 to +3.0); Calcium, Ionized (arterial) 1.12 mmol/L (1.12-1.30); Carboxyhemoglobin (COHb) 0.3 gm% (0.0-3.0); Hemoglobin (Hb) 8.5 g/dL (12.0-16.0); O2 Tension (PaO2), arterial 428.9 mmHg (> 80.0); Puncture Site RRA; pH, Arterial 7.46 (7.35-7.45)
[2021-04-30] MEDS ORDERED: Potassium Chloride 40 MEQ in Premix Bag 1 BAG IVPB SCH (23:45)
[2021-05-01] MEDS: Propofol 1,000 MG/100 ML VIAL IV PRN ×8 (00:36→17:23)
[2021-05-01] MEDS: SODIUM CHLORIDE IV SCH ×3 (04:01→08:26)
[2021-05-01] MEDS: ADMIXTURE FEE IV SCH ×3 (04:01→08:26)
[2021-05-01] MEDS: NPH, Human Insulin Isophane 300 UNIT/3 ML VIAL SC SCH ×4 (04:01→17:21)
[2021-05-01] MEDS: SODIUM BICARBONATE IV SCH ×3 (04:01→08:26)
[2021-05-01] MEDS: Labetalol HCl 100 MG/20 ML VIAL SLOW IVP PRN (04:07)
[2021-05-01 04:19] LABS: #Eosinphils 0.3 10x3/uL (0.0-0.5); #Monocytes 1.7 10x3/uL (0.0-1.1); #Neutrophils 8.7 10x3/uL (1.5-8.4); %Basophils 0.2 % (0.0-2.0); %Eosinophils 2.2 % (0.0-6.0); %Lymphocytes 15.2 % (18.0-47.0); %Monocytes 13.2 % (0.0-10.0); Hemoglobin 8.6 g/dL (12.0-15.5); Mean Corpuscular HGB CONC 33.5 g/dL (32.0-36.0); Mean Corpuscular Hemoglobin 31.3 pg (27.0-33.0); Mean Corpuscular Volume 93.5 fl (81.6-98.3); Mean Platelet Volume 12.7 fl (7.4-10.4); Platelet Count 215 10x3/uL (150-450); RBC Distribution Width 15.4 % (11.5-14.5); Red Blood Cell (RBC) Count 2.75 10x6/uL (3.90-5.03)
[2021-05-01 04:32] LABS: Anion Gap 15 mmol/L (10-20); BUN (Urea Nitrogen) 43 mg/dL (9.8-20.1); Calc. Creatinine Clearance 35 mL/min (70-130); Calcium 8.6 mg/dL (7.8-10.44); Carbon Dioxide 22 mmol/L (23-31); Chloride 111 mmol/L (98-107); Glucose 134 mg/dL (80-115); Potassium 3.3 mmol/L (3.5-5.1); Sodium 145 mmol/L (136-145)
[2021-05-01 08:12] LABS: Actual Bicarbonate (HCO3a) 19.8 mEq/L (22-28); Base Excess (BEa) -3.9 mEq/L (-2.0 to +3.0); CO2 Tension 30.9 mmHg (35.0-45.0); Calcium, Ionized (arterial) 1.11 mmol/L (1.12-1.30); Carboxyhemoglobin (COHb) 0.3 gm% (0.0-3.0); Hemoglobin (Hb) 9.2 g/dL (12.0-16.0); O2 Tension (PaO2), arterial 102.3 mmHg (> 80.0); Potassium - ABG Lab 3.5 mmol/L (3.70-5.30); Puncture Site LRA; pH, Arterial 7.43 (7.35-7.45)
[2021-05-01] MEDS: levETIRAcetam in NS 1,000 MG in Premix Bag 1 BAG IVPB SCH ×2 (08:13→21:44)
[2021-05-01 08:15] LABS: ALV-art Gradient 72.975 mmHg (0-20)
[2021-05-01] MEDS: Metoprolol Tartrate 25 MG TAB PO SCH ×3 (08:26→21:43)
[2021-05-01] MEDS: hydrALAZINE 20 MG/ML VIAL SLOW IVP PRN (09:35)
[2021-05-01] MEDS ORDERED: Piperacillin/Tazobactam 3.375 GM in Sodium Chloride 0.9% 100 ML IVPB SCH ×2 (11:00→12:00)
[2021-05-01] MEDS: fentaNYL Citrate-0.9 % NaCl/PF 100 ML IVPB SCH (11:53)
[2021-05-01 14:11] LABS: SARS-CoV-2 PCR by NAA Not Detected (NotDetected)
[2021-05-01] MEDS: Piperacillin/Tazobactam 3.375 GM in Sodium Chloride 0.9% 100 ML IVPB SCH (14:54)
[2021-05-01] MEDS: Famotidine/PF 20 mg/2ml Vial SLOW IVP SCH (21:43)
[2021-05-02] MEDS: NPH, Human Insulin Isophane 300 UNIT/3 ML VIAL SC SCH ×5 (00:15→23:58)
[2021-05-02] MEDS: Piperacillin/Tazobactam 3.375 GM in Sodium Chloride 0.9% 100 ML IVPB SCH ×4 (00:17→23:58)
[2021-05-02] MEDS: Propofol 1,000 MG/100 ML VIAL IV PRN ×8 (00:17→23:58)
[2021-05-02 04:11] LABS: Anion Gap 16 mmol/L (10-20); BUN (Urea Nitrogen) 43 mg/dL (9.8-20.1); Calc. Creatinine Clearance 43 mL/min (70-130); Calcium 8.5 mg/dL (7.8-10.44); Carbon Dioxide 18 mmol/L (23-31); Chloride 110 mmol/L (98-107); Glucose 184 mg/dL (80-115); Potassium 3.8 mmol/L (3.5-5.1); Sodium 140 mmol/L (136-145)
[2021-05-02 07:21] LABS: Actual Bicarbonate (HCO3a) 20.4 mEq/L (22-28); Base Excess (BEa) -3.9 mEq/L (-2.0 to +3.0); CO2 Tension 33.9 mmHg (35.0-45.0); Calcium, Ionized (arterial) 1.15 mmol/L (1.12-1.30); Carboxyhemoglobin (COHb) 0.1 gm% (0.0-3.0); Hemoglobin (Hb) 8.6 g/dL (12.0-16.0); O2 Tension (PaO2), arterial 108.7 mmHg (> 80.0); Potassium - ABG Lab 3.6 mmol/L (3.70-5.30); Puncture Site RRA
[2021-05-02 07:24] LABS: ALV-art Gradient 62.825 mmHg (0-20)
[2021-05-02 08:42] LABS: #Basophils 0.1 10x3/uL (0.0-0.2); #Eosinphils 0.3 10x3/uL (0.0-0.5); #Monocytes 1.1 10x3/uL (0.0-1.1); #Neutrophils 9.3 10x3/uL (1.5-8.4); %Basophils 0.4 % (0.0-2.0); %Lymphocytes 14.4 % (18.0-47.0); %Monocytes 8.6 % (0.0-10.0); %Neutrophils 72.6 % (40.0-75.0); Hemoglobin 7.7 g/dL (12.0-15.5); Mean Corpuscular HGB CONC 32.5 g/dL (32.0-36.0); Mean Corpuscular Hemoglobin 30.6 pg (27.0-33.0); Mean Platelet Volume 12.5 fl (7.4-10.4); Platelet Count 201 10x3/uL (150-450); RBC Distribution Width 15.2 % (11.5-14.5); Red Blood Cell (RBC) Count 2.52 10x6/uL (3.90-5.03); White Blood Cell (WBC) Count 12.8 10x3/uL (3.5-10.5)
[2021-05-02] MEDS: Metoprolol Tartrate 25 MG TAB PO SCH ×3 (08:51→21:11)
[2021-05-02] MEDS: levETIRAcetam in NS 1,000 MG in Premix Bag 1 BAG IVPB SCH ×2 (08:51→21:11)
[2021-05-02] MEDS: Heparin 5,000 UNITS/ML VIAL SC SCH ×2 (15:42→21:11)
[2021-05-02] MEDS: Famotidine/PF 20 mg/2ml Vial SLOW IVP SCH (21:11)
[2021-05-02] MEDS: Clindamycin/D5W 900 MG in Premix Bag 1 BAG IVPB SCH (21:12)
[2021-05-03] MEDS: Propofol 1,000 MG/100 ML VIAL IV PRN ×2 (02:15→05:18)
[2021-05-03 04:35] LABS: Anion Gap 14 mmol/L (10-20); BUN (Urea Nitrogen) 40 mg/dL (9.8-20.1); Calc. Creatinine Clearance 45 mL/min (70-130); Calcium 8.4 mg/dL (7.8-10.44); Carbon Dioxide 22 mmol/L (23-31); Chloride 112 mmol/L (98-107); Glucose 119 mg/dL (80-115); Potassium 3.8 mmol/L (3.5-5.1); Sodium 144 mmol/L (136-145)
[2021-05-03 04:36] LABS: #Basophils 0.1 10x3/uL (0.0-0.2); #Eosinphils 0.3 10x3/uL (0.0-0.5); #Monocytes 1.3 10x3/uL (0.0-1.1); #Neutrophils 10.1 10x3/uL (1.5-8.4); %Basophils 0.4 % (0.0-2.0); %Eosinophils 1.9 % (0.0-6.0); %Lymphocytes 14.1 % (18.0-47.0); %Monocytes 9.1 % (0.0-10.0); %Neutrophils 72.6 % (40.0-75.0); Hemoglobin 7.5 g/dL (12.0-15.5); Mean Corpuscular Hemoglobin 31.1 pg (27.0-33.0); Mean Corpuscular Volume 94.2 fl (81.6-98.3); Mean Platelet Volume 12.1 fl (7.4-10.4); Platelet Count 203 10x3/uL (150-450); RBC Distribution Width 14.9 % (11.5-14.5); Red Blood Cell (RBC) Count 2.41 10x6/uL (3.90-5.03); White Blood Cell (WBC) Count 13.9 10x3/uL (3.5-10.5)
[2021-05-03] MEDS: Clindamycin/D5W 900 MG in Premix Bag 1 BAG IVPB SCH (05:18)
[2021-05-03] MEDS: NPH, Human Insulin Isophane 300 UNIT/3 ML VIAL SC SCH ×3 (05:19→17:29)
[2021-05-03] MEDS: fentaNYL Citrate-0.9 % NaCl/PF 100 ML IVPB SCH (05:19)
[2021-05-03] MEDS: Piperacillin/Tazobactam 3.375 GM in Sodium Chloride 0.9% 100 ML IVPB SCH ×2 (08:10→15:00)
[2021-05-03] MEDS: Heparin 5,000 UNITS/ML VIAL SC SCH ×3 (08:11→21:30)
[2021-05-03] MEDS: Metoprolol Tartrate 25 MG TAB PO SCH ×3 (08:11→21:30)
[2021-05-03] MEDS: Dexmedetomidine In 0.9 % NaCl 100 ML IVPB SCH ×4 (08:13→23:05)
[2021-05-03] MEDS: levETIRAcetam in NS 1,000 MG in Premix Bag 1 BAG IVPB SCH ×2 (08:13→21:30)
[2021-05-03] MEDS ORDERED: VANCOMYCIN 2 GRAM/400 ML BAG 2 GM in Premix Bag 1 BAG IVPB SCH (08:30)
[2021-05-03] MEDS: Scopolamine 1.5 mg/72 hour Patch TD SCH (11:03)
[2021-05-03] MEDS: Famotidine/PF 20 mg/2ml Vial SLOW IVP SCH (21:29)
[2021-05-04] MEDS: Piperacillin/Tazobactam 3.375 GM in Sodium Chloride 0.9% 100 ML IVPB SCH ×3 (00:30→15:13)
[2021-05-04] MEDS: Dexmedetomidine In 0.9 % NaCl 100 ML IVPB SCH ×6 (03:30→22:30)
[2021-05-04] MEDS: NPH, Human Insulin Isophane 300 UNIT/3 ML VIAL SC SCH ×4 (04:50→18:10)
[2021-05-04 05:22] LABS: #Eosinphils 0.2 10x3/uL (0.0-0.5); #Monocytes 0.9 10x3/uL (0.0-1.1); #Neutrophils 6.2 10x3/uL (1.5-8.4); %Basophils 0.4 % (0.0-2.0); %Eosinophils 2.1 % (0.0-6.0); %Monocytes 10.5 % (0.0-10.0); %Neutrophils 68.6 % (40.0-75.0); Hemoglobin 7.2 g/dL (12.0-15.5); Mean Corpuscular HGB CONC 32.3 g/dL (32.0-36.0); Mean Corpuscular Hemoglobin 30.8 pg (27.0-33.0); Mean Corpuscular Volume 95.3 fl (81.6-98.3); Mean Platelet Volume 11.9 fl (7.4-10.4); Platelet Count 198 10x3/uL (150-450); Red Blood Cell (RBC) Count 2.34 10x6/uL (3.90-5.03)
[2021-05-04 05:41] LABS: Anion Gap 15 mmol/L (10-20); BUN (Urea Nitrogen) 39 mg/dL (9.8-20.1); Calc. Creatinine Clearance 45 mL/min (70-130); Calcium 8.4 mg/dL (7.8-10.44); Carbon Dioxide 20 mmol/L (23-31); Chloride 113 mmol/L (98-107); Glucose 135 mg/dL (80-115); Potassium 3.8 mmol/L (3.5-5.1); Sodium 144 mmol/L (136-145)
[2021-05-04] MEDS: Heparin 5,000 UNITS/ML VIAL SC SCH ×3 (07:44→21:25)
[2021-05-04] MEDS: Metoprolol Tartrate 25 MG TAB PO SCH ×3 (07:44→21:24)
[2021-05-04] MEDS: levETIRAcetam in NS 1,000 MG in Premix Bag 1 BAG IVPB SCH (07:45)
[2021-05-04] MEDS: hydrALAZINE 20 MG/ML VIAL SLOW IVP PRN (07:47)
[2021-05-04 08:36] LABS: Actual Bicarbonate (HCO3a) 20.7 mEq/L (22-28); Base Excess (BEa) -4.2 mEq/L (-2.0 to +3.0); CO2 Tension 36.4 mmHg (35.0-45.0); Calcium, Ionized (arterial) 1.19 mmol/L (1.12-1.30); Carboxyhemoglobin (COHb) 0.5 gm% (0.0-3.0); Hemoglobin (Hb) 7.9 g/dL (12.0-16.0); O2 Tension (PaO2), arterial 102.8 mmHg (> 80.0); Potassium - ABG Lab 3.8 mmol/L (3.70-5.30); Puncture Site LRA; pH, Arterial 7.37 (7.35-7.45)
[2021-05-04 08:51] LABS: Vancomycin, Random 21.3 ug/mL (See Comment)
[2021-05-04] MEDS: fentaNYL Citrate-0.9 % NaCl/PF 100 ML IVPB SCH (10:56)
[2021-05-04] MEDS: Labetalol HCl 100 MG/20 ML VIAL SLOW IVP PRN (18:34)
[2021-05-04] MEDS: Famotidine/PF 20 mg/2ml Vial SLOW IVP SCH (21:21)
[2021-05-04 22:14] LABS: Vancomycin, Random 19.3 ug/mL (See Comment)
[2021-05-05] MEDS: NPH, Human Insulin Isophane 300 UNIT/3 ML VIAL SC SCH ×4 (00:47→17:57)
[2021-05-05] MEDS: Piperacillin/Tazobactam 3.375 GM in Sodium Chloride 0.9% 100 ML IVPB SCH ×3 (00:50→14:56)
[2021-05-05] MEDS: Dexmedetomidine In 0.9 % NaCl 100 ML IVPB SCH ×10 (01:31→22:04)
[2021-05-05] MEDS: Labetalol HCl 100 MG/20 ML VIAL SLOW IVP PRN (02:19)
[2021-05-05] MEDS: hydrALAZINE 20 MG/ML VIAL SLOW IVP PRN ×3 (03:51→23:22)
[2021-05-05 04:30] LABS: #Eosinphils 0.2 10x3/uL (0.0-0.5); #Neutrophils 6.6 10x3/uL (1.5-8.4); %Basophils 0.4 % (0.0-2.0); %Eosinophils 2.1 % (0.0-6.0); %Lymphocytes 16.5 % (18.0-47.0); %Monocytes 10.6 % (0.0-10.0); %Neutrophils 68.5 % (40.0-75.0); Hemoglobin 7.2 g/dL (12.0-15.5); Mean Corpuscular HGB CONC 32.6 g/dL (32.0-36.0); Mean Corpuscular Hemoglobin 30.9 pg (27.0-33.0); Mean Corpuscular Volume 94.8 fl (81.6-98.3); Platelet Count 217 10x3/uL (150-450); RBC Distribution Width 14.6 % (11.5-14.5); Red Blood Cell (RBC) Count 2.33 10x6/uL (3.90-5.03); White Blood Cell (WBC) Count 9.7 10x3/uL (3.5-10.5)
[2021-05-05 04:38] LABS: Anion Gap 17 mmol/L (10-20); BUN (Urea Nitrogen) 37 mg/dL (9.8-20.1); Calc. Creatinine Clearance 45 mL/min (70-130); Calcium 8.6 mg/dL (7.8-10.44); Carbon Dioxide 19 mmol/L (23-31); Chloride 114 mmol/L (98-107); Glucose 158 mg/dL (80-115); Potassium 3.7 mmol/L (3.5-5.1); Sodium 146 mmol/L (136-145)
[2021-05-05] MEDS: Metoprolol Tartrate 25 MG TAB PO SCH ×3 (08:30→20:29)
[2021-05-05] MEDS: Heparin 5,000 UNITS/ML VIAL SC SCH ×3 (08:30→20:27)
[2021-05-05] MEDS ORDERED: Amlodipine 10 MG TAB PO SCH (12:00)
[2021-05-05] MEDS: Acetylcysteine 800 MG/4 ML VIAL INH SCH ×2 (13:06→18:50)
[2021-05-05] MEDS ORDERED: VANCOMYCIN 1.75 GM/350 ML BAG 1.75 GM in Premix Bag 1 BAG IVPB SCH (15:45)
[2021-05-05] MEDS: Metoclopramide HCl 10 MG/2 ML VIAL IVP SCH ×2 (16:33→20:26)
[2021-05-05] MEDS: Famotidine/PF 20 mg/2ml Vial SLOW IVP SCH (20:23)
[2021-05-05] MEDS: fentaNYL Citrate-0.9 % NaCl/PF 100 ML IVPB SCH (22:04)
[2021-05-06] MEDS: NPH, Human Insulin Isophane 300 UNIT/3 ML VIAL SC SCH ×4 (00:28→17:41)
[2021-05-06] MEDS: Dexmedetomidine In 0.9 % NaCl 100 ML IVPB SCH ×11 (00:28→22:37)
[2021-05-06] MEDS: Acetylcysteine 800 MG/4 ML VIAL INH SCH ×4 (02:25→19:05)
[2021-05-06] MEDS: Labetalol HCl 100 MG/20 ML VIAL SLOW IVP PRN ×2 (03:33→09:43)
[2021-05-06 04:07] LABS: #Basophils 0.1 10x3/uL (0.0-0.2); #Eosinphils 0.2 10x3/uL (0.0-0.5); #Monocytes 1.2 10x3/uL (0.0-1.1); #Neutrophils 5.9 10x3/uL (1.5-8.4); %Basophils 0.7 % (0.0-2.0); %Eosinophils 2.3 % (0.0-6.0); %Lymphocytes 16.9 % (18.0-47.0); %Monocytes 13.2 % (0.0-10.0); %Neutrophils 64.8 % (40.0-75.0); Hemoglobin 6.6 g/dL (12.0-15.5); Mean Corpuscular Hemoglobin 30.6 pg (27.0-33.0); Mean Corpuscular Volume 95.4 fl (81.6-98.3); Mean Platelet Volume 11.8 fl (7.4-10.4); Platelet Count 232 10x3/uL (150-450); RBC Distribution Width 14.6 % (11.5-14.5); Red Blood Cell (RBC) Count 2.16 10x6/uL (3.90-5.03); White Blood Cell (WBC) Count 9.1 10x3/uL (3.5-10.5)
[2021-05-06 04:08] LABS: Anion Gap 16 mmol/L (10-20); BUN (Urea Nitrogen) 34 mg/dL (9.8-20.1); Calc. Creatinine Clearance 51 mL/min (70-130); Calcium 8.6 mg/dL (7.8-10.44); Carbon Dioxide 17 mmol/L (23-31); Chloride 117 mmol/L (98-107); Glucose 171 mg/dL (80-115); Potassium 3.3 mmol/L (3.5-5.1); Sodium 147 mmol/L (136-145)
[2021-05-06] MEDS: HumaLOG 300 UNITS/3 ML VIAL SC PRN (06:06)
[2021-05-06] MEDS: hydrALAZINE 20 MG/ML VIAL SLOW IVP PRN ×2 (06:12→16:04)
[2021-05-06 08:20] LABS: Actual Bicarbonate (HCO3a) 19.7 mEq/L (22-28); Base Excess (BEa) -4.8 mEq/L (-2.0 to +3.0); CO2 Tension 33.9 mmHg (35.0-45.0); Calcium, Ionized (arterial) 1.21 mmol/L (1.12-1.30); Carboxyhemoglobin (COHb) 0.4 gm% (0.0-3.0); Hemoglobin (Hb) 7.8 g/dL (12.0-16.0); O2 Tension (PaO2), arterial 113.1 mmHg (> 80.0); Potassium - ABG Lab 3.2 mmol/L (3.70-5.30); Puncture Site RRA; pH, Arterial 7.38 (7.35-7.45)
[2021-05-06 08:23] LABS: ALV-art Gradient 58.425 mmHg (0-20)
[2021-05-06] MEDS: Metoprolol Tartrate 25 MG TAB PO SCH ×3 (08:51→20:54)
[2021-05-06] MEDS: Metoclopramide HCl 10 MG/2 ML VIAL IVP SCH ×4 (08:51→20:54)
[2021-05-06] MEDS ORDERED: Amlodipine 5 MG TAB PO SCH (09:00)
[2021-05-06] MEDS: Heparin 5,000 UNITS/ML VIAL SC SCH ×3 (09:16→20:54)
[2021-05-06] MEDS: Lorazepam 2 MG/ML VIAL SLOW IVP PRN ×2 (09:48→21:27)
[2021-05-06] MEDS: fentaNYL Citrate-0.9 % NaCl/PF 100 ML IVPB SCH ×2 (12:11→20:36)
[2021-05-06] MEDS: Scopolamine 1.5 mg/72 hour Patch TD SCH (12:25)
[2021-05-06] MEDS ORDERED: Potassium Bicarbonate/Cit Ac 20 MEQ TAB PER TUBE SCH (16:00)
[2021-05-06] MEDS: Amlodipine 5 MG TAB PO SCH (20:53)
[2021-05-06] MEDS: Famotidine/PF 20 mg/2ml Vial SLOW IVP SCH (20:54)
[2021-05-07] MEDS: Dexmedetomidine In 0.9 % NaCl 100 ML IVPB SCH ×12 (00:01→22:32)
[2021-05-07] MEDS: NPH, Human Insulin Isophane 300 UNIT/3 ML VIAL SC SCH ×4 (00:23→18:24)
[2021-05-07] MEDS: HumaLOG 300 UNITS/3 ML VIAL SC PRN ×3 (00:24→11:53)
[2021-05-07] MEDS: hydrALAZINE 20 MG/ML VIAL SLOW IVP PRN ×4 (02:37→20:02)
[2021-05-07] MEDS: Acetylcysteine 800 MG/4 ML VIAL INH SCH ×4 (03:10→19:10)
[2021-05-07 04:35] LABS: #Basophils 0.1 10x3/uL (0.0-0.2); #Eosinphils 0.3 10x3/uL (0.0-0.5); #Monocytes 1.3 10x3/uL (0.0-1.1); #Neutrophils 6.3 10x3/uL (1.5-8.4); %Basophils 0.6 % (0.0-2.0); %Eosinophils 2.6 % (0.0-6.0); %Lymphocytes 18.9 % (18.0-47.0); %Monocytes 12.8 % (0.0-10.0); %Neutrophils 62.8 % (40.0-75.0); Hemoglobin 8.6 g/dL (12.0-15.5); Mean Corpuscular HGB CONC 32.6 g/dL (32.0-36.0); Mean Corpuscular Volume 95.3 fl (81.6-98.3); Mean Platelet Volume 11.4 fl (7.4-10.4); Platelet Count 279 10x3/uL (150-450); RBC Distribution Width 14.8 % (11.5-14.5); Red Blood Cell (RBC) Count 2.77 10x6/uL (3.90-5.03)
[2021-05-07 04:56] LABS: Anion Gap 14 mmol/L (10-20); BUN (Urea Nitrogen) 37 mg/dL (9.8-20.1); Calc. Creatinine Clearance 55 mL/min (70-130); Calcium 9.1 mg/dL (7.8-10.44); Carbon Dioxide 18 mmol/L (23-31); Chloride 116 mmol/L (98-107); Glucose 213 mg/dL (80-115); Potassium 3.2 mmol/L (3.5-5.1); Sodium 145 mmol/L (136-145)
[2021-05-07] MEDS: Lorazepam 2 MG/ML VIAL SLOW IVP PRN ×4 (05:05→20:58)
[2021-05-07] MEDS: Labetalol HCl 100 MG/20 ML VIAL SLOW IVP PRN ×2 (06:15→11:41)
[2021-05-07] MEDS: fentaNYL Citrate-0.9 % NaCl/PF 100 ML IVPB SCH ×2 (07:48→19:53)
[2021-05-07] MEDS: Heparin 5,000 UNITS/ML VIAL SC SCH ×3 (09:46→19:51)
[2021-05-07] MEDS: Metoprolol Tartrate 25 MG TAB PO SCH ×3 (09:46→19:51)
[2021-05-07] MEDS: Metoclopramide HCl 10 MG/2 ML VIAL IVP SCH ×4 (09:46→19:51)
[2021-05-07] MEDS: Amlodipine 5 MG TAB PO SCH ×2 (09:47→19:52)
[2021-05-07] MEDS: hydrALAZINE 25 MG TAB PO SCH ×3 (14:32→19:51)
[2021-05-07 16:50] LABS: Vancomycin, Random 18.2 ug/mL (See Comment)
[2021-05-07] MEDS: Famotidine/PF 20 mg/2ml Vial SLOW IVP SCH (19:51)
[2021-05-07] MEDS ORDERED: Vancomycin HCl 750 MG in Sodium Chloride 0.9% 250 ML 250 ML IVPB SCH (20:00)
[2021-05-08] MEDS: NPH, Human Insulin Isophane 300 UNIT/3 ML VIAL SC SCH ×2 (00:34→06:11)
[2021-05-08] MEDS: Dexmedetomidine In 0.9 % NaCl 100 ML IVPB SCH ×10 (00:40→21:52)
[2021-05-08] MEDS: hydrALAZINE 20 MG/ML VIAL SLOW IVP PRN (02:35)
[2021-05-08] MEDS: Lorazepam 2 MG/ML VIAL SLOW IVP PRN (02:45)
[2021-05-08] MEDS: Acetylcysteine 800 MG/4 ML VIAL INH SCH ×4 (02:50→18:50)
[2021-05-08 04:36] LABS: Anion Gap 14 mmol/L (10-20); BUN (Urea Nitrogen) 41 mg/dL (9.8-20.1); Calc. Creatinine Clearance 64 mL/min (70-130); Calcium 8.6 mg/dL (7.8-10.44); Carbon Dioxide 18 mmol/L (23-31); Chloride 119 mmol/L (98-107); Glucose 144 mg/dL (80-115); Potassium 3.6 mmol/L (3.5-5.1); Sodium 147 mmol/L (136-145)
[2021-05-08] MEDS: fentaNYL Citrate-0.9 % NaCl/PF 100 ML IVPB SCH ×2 (06:30→19:42)
[2021-05-08] MEDS: hydrALAZINE 25 MG TAB PO SCH ×4 (08:09→21:10)
[2021-05-08] MEDS: Amlodipine 5 MG TAB PO SCH ×2 (08:09→21:09)
[2021-05-08] MEDS: Metoprolol Tartrate 25 MG TAB PO SCH ×3 (08:09→21:11)
[2021-05-08] MEDS: Heparin 5,000 UNITS/ML VIAL SC SCH ×3 (08:10→21:10)
[2021-05-08] MEDS: Metoclopramide HCl 10 MG/2 ML VIAL IVP SCH ×4 (08:10→21:11)
[2021-05-08] MEDS: oxyCODONE 5 MG TAB PO SCH ×4 (10:38→21:52)
[2021-05-08] MEDS ORDERED: Dextrose 50% Abboject 50 ML SYRINGE ONE (12:21)
[2021-05-08] MEDS ORDERED: Dextrose 5% in Water 1,000 ML IV PRN (13:15)
[2021-05-08] MEDS ORDERED: Dextrose 50% Abboject 50 ML SYRINGE IVP PRN (13:15)
[2021-05-08] MEDS: chlordiazePOXIDE HCl 25 MG CAP PO SCH ×2 (14:09→21:10)
[2021-05-08] MEDS: Labetalol HCl 100 MG/20 ML VIAL SLOW IVP PRN ×2 (15:03→23:23)
[2021-05-08 19:54] LABS: Vancomycin, Random 19.6 ug/mL (See Comment)
[2021-05-08] MEDS: Famotidine/PF 20 mg/2ml Vial SLOW IVP SCH (21:10)
[2021-05-08] MEDS ORDERED: Vancomycin HCl 500 MG in Sodium Chloride 0.9% 100 ML IVPB SCH (22:30)
[2021-05-09] MEDS: Dexmedetomidine In 0.9 % NaCl 100 ML IVPB SCH ×4 (00:03→09:04)
[2021-05-09] MEDS: oxyCODONE 5 MG TAB PO SCH ×6 (02:03→21:49)
[2021-05-09] MEDS: Acetylcysteine 800 MG/4 ML VIAL INH SCH ×4 (02:45→18:50)
[2021-05-09 03:52] LABS: #Basophils 0.1 10x3/uL (0.0-0.2); #Eosinphils 0.2 10x3/uL (0.0-0.5); #Monocytes 1.3 10x3/uL (0.0-1.1); #Neutrophils 6.4 10x3/uL (1.5-8.4); %Basophils 0.6 % (0.0-2.0); %Eosinophils 2.2 % (0.0-6.0); %Lymphocytes 15.7 % (18.0-47.0); %Monocytes 13.1 % (0.0-10.0); %Neutrophils 67.5 % (40.0-75.0); Hemoglobin 8.1 g/dL (12.0-15.5); Mean Corpuscular HGB CONC 33.1 g/dL (32.0-36.0); Mean Corpuscular Hemoglobin 31.3 pg (27.0-33.0); Mean Corpuscular Volume 94.6 fl (81.6-98.3); Mean Platelet Volume 11.2 fl (7.4-10.4); Platelet Count 272 10x3/uL (150-450); RBC Distribution Width 15.2 % (11.5-14.5); Red Blood Cell (RBC) Count 2.59 10x6/uL (3.90-5.03); White Blood Cell (WBC) Count 9.5 10x3/uL (3.5-10.5)
[2021-05-09 04:22] LABS: Anion Gap 13 mmol/L (10-20); BUN (Urea Nitrogen) 34 mg/dL (9.8-20.1); Calc. Creatinine Clearance 80 mL/min (70-130); Calcium 8.9 mg/dL (7.8-10.44); Carbon Dioxide 19 mmol/L (23-31); Chloride 115 mmol/L (98-107); Glucose 148 mg/dL (80-115); Sodium 144 mmol/L (136-145)
[2021-05-09] MEDS ORDERED: Potassium Chloride 40 MEQ in Premix Bag 1 BAG IVPB SCH (06:45)
[2021-05-09] MEDS: NPH, Human Insulin Isophane 300 UNIT/3 ML VIAL SC SCH (07:48)
[2021-05-09] MEDS: Potassium Chloride 20 MEQ in Premix Bag 1 BAG IVPB SCH ×2 (08:12→09:06)
[2021-05-09] MEDS: fentaNYL Citrate-0.9 % NaCl/PF 100 ML IVPB SCH ×2 (08:12→17:44)
[2021-05-09] MEDS: chlordiazePOXIDE HCl 25 MG CAP PO SCH ×3 (08:13→20:15)
[2021-05-09] MEDS: Metoclopramide HCl 10 MG/2 ML VIAL IVP SCH ×4 (08:13→20:17)
[2021-05-09] MEDS: Amlodipine 5 MG TAB PO SCH ×2 (08:13→20:16)
[2021-05-09] MEDS: Heparin 5,000 UNITS/ML VIAL SC SCH ×3 (08:13→20:16)
[2021-05-09] MEDS: hydrALAZINE 25 MG TAB PO SCH ×4 (08:13→20:16)
[2021-05-09] MEDS: Metoprolol Tartrate 25 MG TAB PO SCH ×3 (08:14→20:16)
[2021-05-09] MEDS: Labetalol HCl 100 MG/20 ML VIAL SLOW IVP PRN (09:06)
[2021-05-09] MEDS: Scopolamine 1.5 mg/72 hour Patch TD SCH (10:47)
[2021-05-09] MEDS ORDERED: Dexmedetomidine In 0.9 % NaCl 400 MCG in Premix Bag 1 BAG IVPB SCH (11:00)
[2021-05-09] MEDS ORDERED: Dexmedetomidine In 0.9 % NaCl 100 ML IVPB SCH (11:15)
[2021-05-09] MEDS: Lorazepam 2 MG/ML VIAL SLOW IVP PRN ×2 (13:08→23:51)
[2021-05-09] MEDS: Dexmedetomidine In 0.9 % NaCl 400 MCG in Premix Bag 1 BAG IVPB SCH ×6 (13:33→23:51)
[2021-05-09 15:04] LABS: SARS-CoV-2 PCR by NAA Not Detected (NotDetected)
[2021-05-09] MEDS: Famotidine/PF 20 mg/2ml Vial SLOW IVP SCH (20:16)
[2021-05-09] MEDS: HumaLOG 300 UNITS/3 ML VIAL SC PRN (21:49)
[2021-05-09 22:46] LABS: Vancomycin, Random 14.3 ug/mL (See Comment)
[2021-05-09] MEDS ORDERED: Vancomycin HCl 750 MG in Sodium Chloride 0.9% 250 ML 250 ML IVPB SCH (23:00)
[2021-05-10] MEDS: Dexmedetomidine In 0.9 % NaCl 400 MCG in Premix Bag 1 BAG IVPB SCH ×11 (01:30→23:10)
[2021-05-10] MEDS: Acetylcysteine 800 MG/4 ML VIAL INH SCH ×4 (02:45→19:10)
[2021-05-10] MEDS: oxyCODONE 5 MG TAB PO SCH ×6 (03:07→21:52)
[2021-05-10 03:27] LABS: #Eosinphils 0.1 10x3/uL (0.0-0.5); #Monocytes 0.9 10x3/uL (0.0-1.1); #Neutrophils 4.4 10x3/uL (1.5-8.4); %Basophils 0.5 % (0.0-2.0); %Monocytes 14.2 % (0.0-10.0); %Neutrophils 67.7 % (40.0-75.0); Hemoglobin 8.2 g/dL (12.0-15.5); Mean Corpuscular HGB CONC 32.3 g/dL (32.0-36.0); Mean Corpuscular Hemoglobin 31.2 pg (27.0-33.0); Mean Corpuscular Volume 96.6 fl (81.6-98.3); Mean Platelet Volume 11.3 fl (7.4-10.4); Platelet Count 251 10x3/uL (150-450); RBC Distribution Width 14.9 % (11.5-14.5); Red Blood Cell (RBC) Count 2.63 10x6/uL (3.90-5.03); White Blood Cell (WBC) Count 6.5 10x3/uL (3.5-10.5)
[2021-05-10 03:35] LABS: Anion Gap 12 mmol/L (10-20); BUN (Urea Nitrogen) 35 mg/dL (9.8-20.1); Calc. Creatinine Clearance 68 mL/min (70-130); Calcium 8.8 mg/dL (7.8-10.44); Carbon Dioxide 19 mmol/L (23-31); Chloride 116 mmol/L (98-107); Glucose 237 mg/dL (80-115); Sodium 144 mmol/L (136-145)
[2021-05-10] MEDS: fentaNYL Citrate-0.9 % NaCl/PF 100 ML IVPB SCH ×3 (04:02→22:58)
[2021-05-10] MEDS: HumaLOG 300 UNITS/3 ML VIAL SC PRN ×2 (04:37→22:40)
[2021-05-10] MEDS: hydrALAZINE 20 MG/ML VIAL SLOW IVP PRN (04:41)
[2021-05-10] MEDS: Metoclopramide HCl 10 MG/2 ML VIAL IVP SCH ×4 (06:35→21:53)
[2021-05-10] MEDS ORDERED: Potassium Chloride 40 MEQ in Premix Bag 1 BAG IVPB SCH (06:45)
[2021-05-10] MEDS: Potassium Chloride 20 MEQ in Premix Bag 1 BAG IVPB SCH ×2 (08:44→09:10)
[2021-05-10] MEDS: Heparin 5,000 UNITS/ML VIAL SC SCH ×3 (09:10→21:53)
[2021-05-10] MEDS: chlordiazePOXIDE HCl 25 MG CAP PO SCH ×3 (09:10→21:52)
[2021-05-10] MEDS: hydrALAZINE 25 MG TAB PO SCH ×4 (09:10→21:51)
[2021-05-10] MEDS: Metoprolol Tartrate 25 MG TAB PO SCH ×3 (09:10→21:52)
[2021-05-10] MEDS: Lorazepam 2 MG/ML VIAL SLOW IVP PRN (09:11)
[2021-05-10] MEDS: Amlodipine 5 MG TAB PO SCH ×2 (09:23→21:52)
[2021-05-10 10:35] LABS: Actual Bicarbonate (HCO3a) 22.3 mEq/L (22-28); Base Excess (BEa) -3.5 mEq/L (-2.0 to +3.0); CO2 Tension 43.7 mmHg (35.0-45.0); Calcium, Ionized (arterial) 1.25 mmol/L (1.12-1.30); Carboxyhemoglobin (COHb) 0.1 gm% (0.0-3.0); Hemoglobin (Hb) 8.7 g/dL (12.0-16.0); O2 Tension (PaO2), arterial 106.4 mmHg (> 80.0); Potassium - ABG Lab 3.2 mmol/L (3.70-5.30); Puncture Site RBA; pH, Arterial 7.33 (7.35-7.45)
[2021-05-10 10:39] LABS: ALV-art Gradient 52.875 mmHg (0-20)
[2021-05-10] MEDS: Famotidine/PF 20 mg/2ml Vial SLOW IVP SCH (21:53)
[2021-05-10 22:14] LABS: Vancomycin, Trough 15.9 ug/mL
[2021-05-10] MEDS ORDERED: Vancomycin HCl 500 MG in Sodium Chloride 0.9% 100 ML IVPB SCH (23:00)
[2021-05-11] MEDS: Dexmedetomidine In 0.9 % NaCl 400 MCG in Premix Bag 1 BAG IVPB SCH ×10 (00:34→20:54)
[2021-05-11] MEDS: Lorazepam 2 MG/ML VIAL SLOW IVP PRN ×3 (00:38→17:04)
[2021-05-11] MEDS: oxyCODONE 5 MG TAB PO SCH ×6 (02:43→21:38)
[2021-05-11] MEDS: Acetylcysteine 800 MG/4 ML VIAL INH SCH ×4 (03:00→18:50)
[2021-05-11 03:51] LABS: #Eosinphils 0.2 10x3/uL (0.0-0.5); #Monocytes 0.7 10x3/uL (0.0-1.1); #Neutrophils 2.8 10x3/uL (1.5-8.4); %Basophils 0.4 % (0.0-2.0); %Eosinophils 3.7 % (0.0-6.0); %Lymphocytes 19.4 % (18.0-47.0); %Monocytes 14.7 % (0.0-10.0); %Neutrophils 61.4 % (40.0-75.0); Mean Corpuscular HGB CONC 32.4 g/dL (32.0-36.0); Mean Corpuscular Hemoglobin 32.4 pg (27.0-33.0); Platelet Count 278 10x3/uL (150-450); Red Blood Cell (RBC) Count 2.47 10x6/uL (3.90-5.03); White Blood Cell (WBC) Count 4.6 10x3/uL (3.5-10.5)
[2021-05-11 04:07] LABS: Anion Gap 12 mmol/L (10-20); BUN (Urea Nitrogen) 33 mg/dL (9.8-20.1); Calc. Creatinine Clearance 76 mL/min (70-130); Calcium 8.5 mg/dL (7.8-10.44); Carbon Dioxide 20 mmol/L (23-31); Chloride 118 mmol/L (98-107); Glucose 206 mg/dL (80-115); Potassium 3.7 mmol/L (3.5-5.1); Sodium 146 mmol/L (136-145)
[2021-05-11] MEDS: HumaLOG 300 UNITS/3 ML VIAL SC PRN (05:00)
[2021-05-11] MEDS: Metoclopramide HCl 10 MG/2 ML VIAL IVP SCH ×4 (07:48→20:53)
[2021-05-11] MEDS: Sodium Chloride 0.45% 1,000 ML IV SCH ×2 (07:56→17:02)
[2021-05-11] MEDS: Amlodipine 5 MG TAB PO SCH ×2 (09:04→20:54)
[2021-05-11] MEDS: hydrALAZINE 25 MG TAB PO SCH ×4 (09:04→20:53)
[2021-05-11] MEDS: Heparin 5,000 UNITS/ML VIAL SC SCH ×3 (09:04→20:59)
[2021-05-11] MEDS: chlordiazePOXIDE HCl 25 MG CAP PO SCH ×3 (09:05→20:53)
[2021-05-11] MEDS: Metoprolol Tartrate 25 MG TAB PO SCH ×3 (09:05→20:53)
[2021-05-11] MEDS: fentaNYL Citrate-0.9 % NaCl/PF 100 ML IVPB SCH ×2 (09:14→19:37)
[2021-05-11] MEDS ORDERED: Morphine 2 MG/ML VIAL SLOW IVP PRN (10:54)
[2021-05-11] MEDS ORDERED: Fentanyl BOLUS 250 ML IVPB PRN (10:55)
[2021-05-11] MEDS: Famotidine/PF 20 mg/2ml Vial SLOW IVP SCH (20:53)
[2021-05-11 23:10] LABS: Vancomycin, Random 16.8 ug/mL (See Comment)
[2021-05-11] MEDS ORDERED: Vancomycin HCl 500 MG in Sodium Chloride 0.9% 100 ML IVPB SCH (23:30)
[2021-05-12] MEDS: Dexmedetomidine In 0.9 % NaCl 400 MCG in Premix Bag 1 BAG IVPB SCH ×10 (00:14→23:27)
[2021-05-12] MEDS: Vancomycin HCl 500 MG in Sodium Chloride 0.9% 100 ML IVPB SCH ×2 (00:14→23:55)
[2021-05-12] MEDS: Sodium Chloride 0.45% 1,000 ML IV SCH (01:32)
[2021-05-12] MEDS: Lorazepam 2 MG/ML VIAL SLOW IVP PRN (01:34)
[2021-05-12] MEDS: oxyCODONE 5 MG TAB PO SCH ×6 (02:22→21:59)
[2021-05-12] MEDS: Acetylcysteine 800 MG/4 ML VIAL INH SCH ×3 (03:25→11:55)
[2021-05-12 04:33] LABS: #Basophils 0.1 10x3/uL (0.0-0.2); #Eosinphils 0.3 10x3/uL (0.0-0.5); #Neutrophils 5.7 10x3/uL (1.5-8.4); %Basophils 0.8 % (0.0-2.0); %Eosinophils 3.7 % (0.0-6.0); %Lymphocytes 12.8 % (18.0-47.0); %Monocytes 11.4 % (0.0-10.0); %Neutrophils 66.6 % (40.0-75.0); Hemoglobin 7.6 g/dL (12.0-15.5); Mean Corpuscular HGB CONC 32.9 g/dL (32.0-36.0); Mean Corpuscular Hemoglobin 30.9 pg (27.0-33.0); Mean Corpuscular Volume 93.9 fl (81.6-98.3); Mean Platelet Volume 11.6 fl (7.4-10.4); Platelet Count 242 10x3/uL (150-450); Red Blood Cell (RBC) Count 2.46 10x6/uL (3.90-5.03); White Blood Cell (WBC) Count 8.5 10x3/uL (3.5-10.5)
[2021-05-12 04:51] LABS: Anion Gap 15 mmol/L (10-20); BUN (Urea Nitrogen) 33 mg/dL (9.8-20.1); Calc. Creatinine Clearance 69 mL/min (70-130); Calcium 8.8 mg/dL (7.8-10.44); Carbon Dioxide 16 mmol/L (23-31); Chloride 119 mmol/L (98-107); Glucose 157 mg/dL (80-115); Potassium 4.3 mmol/L (3.5-5.1); Sodium 146 mmol/L (136-145)
[2021-05-12] MEDS: fentaNYL Citrate-0.9 % NaCl/PF 100 ML IVPB SCH (06:09)
[2021-05-12] MEDS: Heparin 5,000 UNITS/ML VIAL SC SCH ×3 (08:24→20:17)
[2021-05-12] MEDS: hydrALAZINE 25 MG TAB PO SCH ×4 (08:24→20:16)
[2021-05-12] MEDS: Metoclopramide HCl 10 MG/2 ML VIAL IVP SCH ×4 (08:24→20:17)
[2021-05-12] MEDS: chlordiazePOXIDE HCl 25 MG CAP PO SCH ×3 (08:25→20:18)
[2021-05-12] MEDS: Amlodipine 5 MG TAB PO SCH ×2 (08:25→20:17)
[2021-05-12] MEDS: Metoprolol Tartrate 25 MG TAB PO SCH ×3 (08:25→21:15)
[2021-05-12] MEDS: Scopolamine 1.5 mg/72 hour Patch TD SCH (12:05)
[2021-05-12] MEDS: HumaLOG 300 UNITS/3 ML VIAL SC PRN ×2 (16:13→22:03)
[2021-05-12] MEDS: Famotidine/PF 20 mg/2ml Vial SLOW IVP SCH (20:18)
[2021-05-13] MEDS: Lorazepam 2 MG/ML VIAL SLOW IVP PRN ×2 (02:04→03:41)
[2021-05-13] MEDS: oxyCODONE 5 MG TAB PO SCH ×6 (02:04→21:30)
[2021-05-13] MEDS: hydrALAZINE 20 MG/ML VIAL SLOW IVP PRN (02:57)
[2021-05-13] MEDS: fentaNYL Citrate-0.9 % NaCl/PF 100 ML IVPB SCH ×2 (03:20→13:55)
[2021-05-13] MEDS: Dexmedetomidine In 0.9 % NaCl 400 MCG in Premix Bag 1 BAG IVPB SCH ×7 (03:27→19:50)
[2021-05-13 04:12] LABS: Hemoglobin 8.8 g/dL (12.0-15.5); Mean Corpuscular HGB CONC 32.6 g/dL (32.0-36.0); Mean Corpuscular Hemoglobin 30.6 pg (27.0-33.0); Mean Corpuscular Volume 93.8 fl (81.6-98.3); Mean Platelet Volume 11.4 fl (7.4-10.4); Platelet Count 317 10x3/uL (150-450); RBC Distribution Width 14.8 % (11.5-14.5); Red Blood Cell (RBC) Count 2.88 10x6/uL (3.90-5.03); White Blood Cell (WBC) Count 12.3 10x3/uL (3.5-10.5)
[2021-05-13 04:26] LABS: Anion Gap 16 mmol/L (10-20); BUN (Urea Nitrogen) 33 mg/dL (9.8-20.1); Calc. Creatinine Clearance 65 mL/min (70-130); Carbon Dioxide 17 mmol/L (23-31); Chloride 115 mmol/L (98-107); Glucose 136 mg/dL (80-115); Potassium 3.6 mmol/L (3.5-5.1); Sodium 144 mmol/L (136-145)
[2021-05-13 05:47] LABS: MDiff Complete? YES
[2021-05-13 07:00] LABS: Band 2 % (5-11); Eosinophils 1 % (0-10); Lymphocytes 23 % (21-51); Monocytes 15 % (0-10); Myelocyte 1 % (0-0); Neutrophil 52 % (42-75); Reactive Lymphocytes 4 % (0-10)
[2021-05-13 07:02] LABS: Large Platelets MODERATE; Platelet Clumps SLIGHT; Platelet Morphology Comment Appears Adequate
[2021-05-13 09:04] LABS: Lactic Acid 0.8 mmol/L (0.5-2.2)
[2021-05-13] MEDS: hydrALAZINE 25 MG TAB PO SCH ×4 (09:22→21:54)
[2021-05-13] MEDS: Metoprolol Tartrate 25 MG TAB PO SCH ×3 (09:22→21:30)
[2021-05-13] MEDS: Heparin 5,000 UNITS/ML VIAL SC SCH ×3 (09:22→21:54)
[2021-05-13] MEDS: chlordiazePOXIDE HCl 25 MG CAP PO SCH ×2 (09:22→14:02)
[2021-05-13] MEDS: Amlodipine 5 MG TAB PO SCH ×2 (09:22→21:30)
[2021-05-13] MEDS: Metoclopramide HCl 10 MG/2 ML VIAL IVP SCH ×4 (09:23→21:54)
[2021-05-13] MEDS: HumaLOG 300 UNITS/3 ML VIAL SC PRN (16:46)
[2021-05-13] MEDS: Famotidine/PF 20 mg/2ml Vial SLOW IVP SCH (21:54)
[2021-05-14 00:10] LABS: Vancomycin, Trough 15.1 ug/mL
[2021-05-14] MEDS: Dexmedetomidine In 0.9 % NaCl 400 MCG in Premix Bag 1 BAG IVPB SCH ×8 (00:29→22:30)
[2021-05-14] MEDS: fentaNYL Citrate-0.9 % NaCl/PF 100 ML IVPB SCH ×2 (02:35→10:25)
[2021-05-14] MEDS: oxyCODONE 5 MG TAB PO SCH ×6 (02:35→23:14)
[2021-05-14 04:14] LABS: #Eosinphils 0.3 10x3/uL (0.0-0.5); #Monocytes 1.3 10x3/uL (0.0-1.1); #Neutrophils 4.5 10x3/uL (1.5-8.4); %Basophils 0.4 % (0.0-2.0); %Eosinophils 3.4 % (0.0-6.0); %Lymphocytes 16.8 % (18.0-47.0); %Monocytes 17.4 % (0.0-10.0); %Neutrophils 61.6 % (40.0-75.0); Hemoglobin 7.9 g/dL (12.0-15.5); Mean Corpuscular HGB CONC 31.6 g/dL (32.0-36.0); Mean Corpuscular Hemoglobin 30.6 pg (27.0-33.0); Mean Corpuscular Volume 96.9 fl (81.6-98.3); Mean Platelet Volume 11.2 fl (7.4-10.4); Platelet Count 304 10x3/uL (150-450); RBC Distribution Width 14.9 % (11.5-14.5); Red Blood Cell (RBC) Count 2.58 10x6/uL (3.90-5.03); White Blood Cell (WBC) Count 7.3 10x3/uL (3.5-10.5)
[2021-05-14 04:22] LABS: Anion Gap 13 mmol/L (10-20); BUN (Urea Nitrogen) 36 mg/dL (9.8-20.1); Calc. Creatinine Clearance 61 mL/min (70-130); Carbon Dioxide 21 mmol/L (23-31); Chloride 114 mmol/L (98-107); Glucose 173 mg/dL (80-115); Potassium 3.3 mmol/L (3.5-5.1); Sodium 145 mmol/L (136-145)
[2021-05-14] MEDS: Potassium Chloride 10 MEQ in Premix Bag 1 BAG IVPB SCH ×3 (06:20→09:00)
[2021-05-14] MEDS: hydrALAZINE 20 MG/ML VIAL SLOW IVP PRN (07:11)
[2021-05-14] MEDS: Amlodipine 5 MG TAB PO SCH ×2 (08:07→20:38)
[2021-05-14] MEDS: Heparin 5,000 UNITS/ML VIAL SC SCH ×3 (08:07→20:39)
[2021-05-14] MEDS: Metoprolol Tartrate 25 MG TAB PO SCH ×3 (08:07→20:40)
[2021-05-14] MEDS: Metoclopramide HCl 10 MG/2 ML VIAL IVP SCH ×4 (08:07→20:40)
[2021-05-14] MEDS: hydrALAZINE 25 MG TAB PO SCH ×4 (08:07→20:40)
[2021-05-14] MEDS ORDERED: Potassium Bicarbonate/Cit Ac 20 MEQ TAB PER TUBE SCH (11:00)
[2021-05-14] MEDS: Vancomycin HCl 500 MG in Sodium Chloride 0.9% 100 ML IVPB SCH (12:02)
[2021-05-14] MEDS: Famotidine/PF 20 mg/2ml Vial SLOW IVP SCH (20:39)
[2021-05-15] MEDS: fentaNYL Citrate-0.9 % NaCl/PF 100 ML IVPB SCH ×2 (00:40→14:39)
[2021-05-15] MEDS: Dexmedetomidine In 0.9 % NaCl 400 MCG in Premix Bag 1 BAG IVPB SCH ×8 (01:33→23:17)
[2021-05-15] MEDS: oxyCODONE 5 MG TAB PO SCH ×3 (04:48→11:46)
[2021-05-15 05:02] LABS: Anion Gap 13 mmol/L (10-20); BUN (Urea Nitrogen) 31 mg/dL (9.8-20.1); Calc. Creatinine Clearance 64 mL/min (70-130); Calcium 8.6 mg/dL (7.8-10.44); Carbon Dioxide 21 mmol/L (23-31); Chloride 113 mmol/L (98-107); Glucose 156 mg/dL (80-115); Sodium 144 mmol/L (136-145)
[2021-05-15 05:06] LABS: Potassium 2.9 mmol/L (3.5-5.1)
[2021-05-15] MEDS: Potassium Chloride 20 MEQ TAB PER TUBE SCH ×2 (07:10→09:42)
[2021-05-15] MEDS: Metoclopramide HCl 10 MG/2 ML VIAL IVP SCH ×4 (07:58→20:58)
[2021-05-15] MEDS: Heparin 5,000 UNITS/ML VIAL SC SCH ×3 (08:13→20:56)
[2021-05-15] MEDS: hydrALAZINE 25 MG TAB PO SCH ×4 (08:14→20:58)
[2021-05-15] MEDS: Metoprolol Tartrate 25 MG TAB PO SCH ×3 (08:15→20:59)
[2021-05-15] MEDS: Amlodipine 5 MG TAB PO SCH (08:16)
[2021-05-15] MEDS ORDERED: NIFEdipine XL 60 MG TAB PO SCH (09:00)
[2021-05-15] MEDS: ADMIXTURE FEE IV SCH ×2 (10:05→21:27)
[2021-05-15] MEDS: SODIUM CHLORIDE IV SCH ×2 (10:05→21:27)
[2021-05-15] MEDS: SODIUM BICARBONATE IV SCH ×2 (10:05→21:27)
[2021-05-15] MEDS: HumaLOG 300 UNITS/3 ML VIAL SC PRN ×3 (11:46→21:26)
[2021-05-15] MEDS: Scopolamine 1.5 mg/72 hour Patch TD SCH (11:47)
[2021-05-15 15:14] LABS: Potassium 4.1 mmol/L (3.5-5.1)
[2021-05-15 15:39] LABS: #Basophils 0.1 10x3/uL (0.0-0.2); #Monocytes 1.1 10x3/uL (0.0-1.1); #Neutrophils 5.3 10x3/uL (1.5-8.4); %Basophils 0.7 % (0.0-2.0); %Eosinophils 0.4 % (0.0-6.0); %Lymphocytes 11.4 % (18.0-47.0); %Monocytes 14.2 % (0.0-10.0); %Neutrophils 70.4 % (40.0-75.0); Hemoglobin 8.2 g/dL (12.0-15.5); Mean Corpuscular HGB CONC 30.4 g/dL (32.0-36.0); Mean Corpuscular Hemoglobin 30.5 pg (27.0-33.0); Mean Corpuscular Volume 100.4 fl (81.6-98.3); Platelet Count 280 10x3/uL (150-450); Red Blood Cell (RBC) Count 2.69 10x6/uL (3.90-5.03); White Blood Cell (WBC) Count 7.5 10x3/uL (3.5-10.5)
[2021-05-15 16:17] LABS: RBC Morphology Normal
[2021-05-15 16:18] LABS: Platelet Morphology Comment Appears Adequate
[2021-05-15] MEDS: Cefepime 2 GM in Sodium Chloride 0.9% 100 ML IVPB SCH (17:20)
[2021-05-15] MEDS ORDERED: Sodium Chloride 0.9% 100 ML ONE (17:20)
[2021-05-15] MEDS ORDERED: Azithromycin 500 MG in Sodium Chloride 0.9% 250 ML 250 ML IVPB SCH (18:15)
[2021-05-15 19:17] LABS: Bilirubin Neg (Negative); Blood, Urine 25 (Negative); Clarity Clear (Clear); Glucose, Urine (Dipstick) 50 mg/dL (Negative); Ketone, Urine 5 mg/dL (Negative); Leukocyte 25 (Negative); Nitrite Negative (Negative); Protein, Urine (Dipstick) 15 mg/dl (Neg-Trace); Specific Gravity, Urine 1.005 (1.002-1.036); Urine Culture Reflex No No; Urobilinogen Normal mg/dL (Less than 2); pH, Urine 6.5 (5.0-9.0)
[2021-05-15 19:34] LABS: Bacteria/HPF Rare-Few HPF (None Seen); RBC/HPF 0-3 HPF (0-3); Squamous Epithelial None Seen HPF (0-3)
[2021-05-15 19:35] LABS: Yeast-Budding 1+ HPF (None Seen)
[2021-05-15 19:57] LABS: Legionella Urinary Ag Negative (Negative); Strep pneumo Urine Ag NEGATIVE (NEGATIVE)
[2021-05-15] MEDS: Famotidine/PF 20 mg/2ml Vial SLOW IVP SCH (20:55)
[2021-05-15] MEDS: Vancomycin HCl 500 MG in Sodium Chloride 0.9% 100 ML IVPB SCH (23:26)
[2021-05-16] MEDS: Labetalol HCl 100 MG/20 ML VIAL SLOW IVP PRN (00:25)
[2021-05-16] MEDS: fentaNYL Citrate-0.9 % NaCl/PF 100 ML IVPB SCH ×2 (01:57→13:54)
[2021-05-16] MEDS: Dexmedetomidine In 0.9 % NaCl 400 MCG in Premix Bag 1 BAG IVPB SCH ×7 (02:28→21:27)
[2021-05-16] MEDS: Lorazepam 2 MG/ML VIAL SLOW IVP PRN (02:32)
[2021-05-16 04:24] LABS: #Eosinphils 0.2 10x3/uL (0.0-0.5); #Monocytes 1.8 10x3/uL (0.0-1.1); #Neutrophils 4.2 10x3/uL (1.5-8.4); %Basophils 0.5 % (0.0-2.0); %Eosinophils 1.9 % (0.0-6.0); %Lymphocytes 15.3 % (18.0-47.0); %Monocytes 23.2 % (0.0-10.0); %Neutrophils 52.3 % (40.0-75.0); Hemoglobin 9.5 g/dL (12.0-15.5); Mean Corpuscular HGB CONC 33.2 g/dL (32.0-36.0); Mean Corpuscular Hemoglobin 30.4 pg (27.0-33.0); Mean Corpuscular Volume 91.7 fl (81.6-98.3); Mean Platelet Volume 11.5 fl (7.4-10.4); Platelet Count 242 10x3/uL (150-450); RBC Distribution Width 14.8 % (11.5-14.5); Red Blood Cell (RBC) Count 3.12 10x6/uL (3.90-5.03); White Blood Cell (WBC) Count 7.9 10x3/uL (3.5-10.5)
[2021-05-16 04:29] LABS: Anion Gap 17 mmol/L (10-20); BUN (Urea Nitrogen) 33 mg/dL (9.8-20.1); Calc. Creatinine Clearance 63 mL/min (70-130); Calcium 8.6 mg/dL (7.8-10.44); Carbon Dioxide 19 mmol/L (23-31); Chloride 111 mmol/L (98-107); Glucose 203 mg/dL (80-115); Potassium 3.7 mmol/L (3.5-5.1); Sodium 143 mmol/L (136-145)
[2021-05-16 04:34] LABS: Eosinophils 5 % (0-10); Lymphocytes 10 % (21-51); Monocytes 24 % (0-10)
[2021-05-16] MEDS: HumaLOG 300 UNITS/3 ML VIAL SC PRN ×4 (05:13→21:13)
[2021-05-16] MEDS: SODIUM BICARBONATE IV SCH (07:52)
[2021-05-16] MEDS: ADMIXTURE FEE IV SCH (07:52)
[2021-05-16] MEDS: SODIUM CHLORIDE IV SCH (07:52)
[2021-05-16] MEDS: Metoclopramide HCl 10 MG/2 ML VIAL IVP SCH ×4 (07:54→20:38)
[2021-05-16] MEDS: Metoprolol Tartrate 50 MG TAB PO SCH ×3 (08:37→20:39)
[2021-05-16] MEDS: hydrALAZINE 25 MG TAB PO SCH ×4 (08:38→20:36)
[2021-05-16] MEDS: Amlodipine 10 MG TAB PER TUBE SCH (08:38)
[2021-05-16] MEDS: Heparin 5,000 UNITS/ML VIAL SC SCH ×3 (08:38→20:35)
[2021-05-16] MEDS ORDERED: NIFEdipine XL 90 MG TAB PO SCH (09:00)
[2021-05-16] MEDS ORDERED: Furosemide 40 MG/4 ML VIAL SLOW IVP SCH (09:00)
[2021-05-16] MEDS ORDERED: Sodium Bicarbonate Tab 325 MG TAB PER TUBE SCH (09:30)
[2021-05-16] MEDS: Acetaminophen 325 MG TAB PO PRN ×2 (12:19→20:34)
[2021-05-16] MEDS: Cefepime 2 GM in Sodium Chloride 0.9% 100 ML IVPB SCH (17:12)
[2021-05-16] MEDS: Famotidine/PF 20 mg/2ml Vial SLOW IVP SCH (20:35)
[2021-05-16] MEDS: Sodium Bicarbonate Tab 325 MG TAB PER TUBE SCH (20:39)
[2021-05-17] MEDS: Dexmedetomidine In 0.9 % NaCl 400 MCG in Premix Bag 1 BAG IVPB SCH ×4 (01:14→20:56)
[2021-05-17] MEDS: Lorazepam 2 MG/ML VIAL SLOW IVP PRN (02:01)
[2021-05-17] MEDS: fentaNYL Citrate-0.9 % NaCl/PF 100 ML IVPB SCH (03:16)
[2021-05-17 05:03] LABS: Anion Gap 15 mmol/L (10-20); BUN (Urea Nitrogen) 35 mg/dL (9.8-20.1); Calc. Creatinine Clearance 65 mL/min (70-130); Calcium 8.5 mg/dL (7.8-10.44); Carbon Dioxide 23 mmol/L (23-31); Chloride 110 mmol/L (98-107); Glucose 176 mg/dL (80-115); Potassium 3.8 mmol/L (3.5-5.1); Sodium 144 mmol/L (136-145)
[2021-05-17 06:14] LABS: Hemoglobin 8.1 g/dL (12.0-15.5); Mean Corpuscular HGB CONC 33.8 g/dL (32.0-36.0); Mean Platelet Volume 11.1 fl (7.4-10.4); RBC Distribution Width 14.8 % (11.5-14.5); Red Blood Cell (RBC) Count 2.61 10x6/uL (3.90-5.03); White Blood Cell (WBC) Count 7.1 10x3/uL (3.5-10.5)
[2021-05-17 06:40] LABS: MDiff Complete? YES
[2021-05-17 06:49] LABS: Band 3 % (5-11); Eosinophils 4 % (0-10); Lymphocytes 13 % (21-51); Monocytes 23 % (0-10); Neutrophil 57 % (42-75)
[2021-05-17 06:52] LABS: Hypochromia SLIGHT = 6-15 cells (100X) (0-5/hpf)
[2021-05-17 06:53] LABS: Platelet Morphology Comment Appears Adequate
[2021-05-17 07:07] LABS: Platelet Count 227 10x3/uL (150-450)
[2021-05-17] MEDS ORDERED: EPINEPHrine 1 MG/ML AMP ONE (07:21)
[2021-05-17] MEDS ORDERED: Bupivacaine 0.25% HCL 30 ML VIAL ONE (07:21)
[2021-05-17] MEDS: Metoclopramide HCl 10 MG/2 ML VIAL IVP SCH ×4 (07:45→20:55)
[2021-05-17] MEDS: Micafungin 100 MG in Sodium Chloride 0.9% 100 ML IVPB SCH (08:27)
[2021-05-17] MEDS ORDERED: PROPOFOL 20 ML ONE (08:40)
[2021-05-17] MEDS ORDERED: Midazolam HCl 2 mg/2 ml Vial ONE ×2 (08:41→10:42)
[2021-05-17] MEDS ORDERED: Fentanyl 100 MCG/2 ML VIAL ONE (08:41)
[2021-05-17] MEDS ORDERED: Rocuronium Bromide 10 MG/ML (10ML VIAL) ONE (09:02)
[2021-05-17] MEDS ORDERED: CEFAZOLIN 1 GM VIAL ONE (09:46)
[2021-05-17 10:23] LABS: SARS-CoV-2 PCR by NAA Not Detected (NotDetected)
[2021-05-17 12:00] LABS: Vancomycin, Trough 9.6 ug/mL
[2021-05-17] MEDS: hydrALAZINE 25 MG TAB PO SCH ×4 (12:17→20:55)
[2021-05-17] MEDS: Heparin 5,000 UNITS/ML VIAL SC SCH ×3 (12:17→20:56)
[2021-05-17] MEDS: hydrALAZINE 20 MG/ML VIAL SLOW IVP PRN (12:44)
[2021-05-17] MEDS: HumaLOG 300 UNITS/3 ML VIAL SC PRN ×3 (12:44→21:02)
[2021-05-17] MEDS: Vancomycin HCl 500 MG in Sodium Chloride 0.9% 100 ML IVPB SCH (12:46)
[2021-05-17] MEDS: Metoprolol Tartrate 50 MG TAB PO SCH ×3 (13:02→20:54)
[2021-05-17] MEDS: Sodium Bicarbonate Tab 325 MG TAB PER TUBE SCH ×2 (13:02→20:55)
[2021-05-17] MEDS: Amlodipine 10 MG TAB PER TUBE SCH (13:02)
[2021-05-17] MEDS ORDERED: Vancomycin HCl 500 MG in Sodium Chloride 0.9% 100 ML IVPB SCH (13:15)
[2021-05-17] MEDS: Cefepime 2 GM in Sodium Chloride 0.9% 100 ML IVPB SCH (16:59)
[2021-05-17] MEDS: Famotidine/PF 20 mg/2ml Vial SLOW IVP SCH (20:55)
[2021-05-17] MEDS: Acetaminophen 325 MG TAB PO PRN (20:55)
[2021-05-17] MEDS ORDERED: Lantus 1000 UNITS/10 ML VIAL SC SCH (21:00)
[2021-05-18] MEDS: Dexmedetomidine In 0.9 % NaCl 400 MCG in Premix Bag 1 BAG IVPB SCH ×5 (00:17→20:30)
[2021-05-18] MEDS: HumaLOG 300 UNITS/3 ML VIAL SC PRN ×3 (04:16→22:00)
[2021-05-18 05:18] LABS: Anion Gap 15 mmol/L (10-20); BUN (Urea Nitrogen) 36 mg/dL (9.8-20.1); Calc. Creatinine Clearance 61 mL/min (70-130); Calcium 8.2 mg/dL (7.8-10.44); Carbon Dioxide 25 mmol/L (23-31); Chloride 108 mmol/L (98-107); Glucose 219 mg/dL (80-115); Potassium 3.1 mmol/L (3.5-5.1); Sodium 145 mmol/L (136-145)
[2021-05-18 05:20] LABS: #Eosinphils 0.1 10x3/uL (0.0-0.5); #Monocytes 1.3 10x3/uL (0.0-1.1); #Neutrophils 5.5 10x3/uL (1.5-8.4); %Basophils 0.4 % (0.0-2.0); %Eosinophils 1.1 % (0.0-6.0); %Lymphocytes 14.9 % (18.0-47.0); %Monocytes 15.5 % (0.0-10.0); %Neutrophils 65.8 % (40.0-75.0); Hemoglobin 7.3 g/dL (12.0-15.5); Mean Corpuscular HGB CONC 32.4 g/dL (32.0-36.0); Mean Corpuscular Volume 92.6 fl (81.6-98.3); Mean Platelet Volume 11.7 fl (7.4-10.4); Platelet Count 250 10x3/uL (150-450); RBC Distribution Width 14.8 % (11.5-14.5); Red Blood Cell (RBC) Count 2.43 10x6/uL (3.90-5.03); White Blood Cell (WBC) Count 8.3 10x3/uL (3.5-10.5)
[2021-05-18] MEDS ORDERED: Potassium Chloride 20 MEQ TAB PER TUBE SCH ×2 (05:45→08:00)
[2021-05-18 05:50] LABS: Hypochromia MODERATE=16-30 cells (100X) (0-5/hpf); Platelet Morphology Comment PLT clumps seen-ADEQ
[2021-05-18] MEDS: Metoclopramide HCl 10 MG/2 ML VIAL IVP SCH ×4 (07:43→21:27)
[2021-05-18] MEDS: Micafungin 100 MG in Sodium Chloride 0.9% 100 ML IVPB SCH (07:44)
[2021-05-18] MEDS: Metoprolol Tartrate 50 MG TAB PO SCH ×3 (08:23→21:27)
[2021-05-18] MEDS: Amlodipine 10 MG TAB PER TUBE SCH (08:23)
[2021-05-18] MEDS: Sodium Bicarbonate Tab 325 MG TAB PER TUBE SCH ×2 (08:23→21:28)
[2021-05-18] MEDS: hydrALAZINE 25 MG TAB PO SCH ×4 (08:24→21:27)
[2021-05-18] MEDS: Heparin 5,000 UNITS/ML VIAL SC SCH ×3 (12:47→21:26)
[2021-05-18] MEDS: Acetaminophen 325 MG TAB PO PRN ×2 (15:23→21:25)
[2021-05-18 20:59] LABS: Anion Gap 15 mmol/L (10-20); BUN (Urea Nitrogen) 41 mg/dL (9.8-20.1); Calc. Creatinine Clearance 59 mL/min (70-130); Calcium 8.3 mg/dL (7.8-10.44); Carbon Dioxide 26 mmol/L (23-31); Chloride 107 mmol/L (98-107); Glucose 208 mg/dL (80-115); Potassium 3.2 mmol/L (3.5-5.1); Sodium 145 mmol/L (136-145)
[2021-05-18] MEDS ORDERED: Lantus 1000 UNITS/10 ML VIAL SC SCH (21:00)
[2021-05-18] MEDS: Famotidine/PF 20 mg/2ml Vial SLOW IVP SCH (21:26)
[2021-05-19] MEDS ORDERED: Vancomycin HCl 750 MG in Sodium Chloride 0.9% 250 ML 250 ML IVPB SCH (00:30)
[2021-05-19 04:23] LABS: Anion Gap 15 mmol/L (10-20); BUN (Urea Nitrogen) 43 mg/dL (9.8-20.1); Calc. Creatinine Clearance 57 mL/min (70-130); Calcium 8.3 mg/dL (7.8-10.44); Carbon Dioxide 24 mmol/L (23-31); Chloride 109 mmol/L (98-107); Glucose 263 mg/dL (80-115); Sodium 145 mmol/L (136-145)
[2021-05-19] MEDS: Dexmedetomidine In 0.9 % NaCl 400 MCG in Premix Bag 1 BAG IVPB SCH ×2 (05:00→17:06)
[2021-05-19] MEDS: HumaLOG 300 UNITS/3 ML VIAL SC PRN ×4 (06:22→20:09)
[2021-05-19] MEDS ORDERED: Vecuronium 10 MG VIAL IVP SCH (07:59)
[2021-05-19] MEDS ORDERED: Vecuronium 10 MG VIAL ONE (08:02)
[2021-05-19] MEDS: hydrALAZINE 20 MG/ML VIAL SLOW IVP PRN (08:31)
[2021-05-19] MEDS ORDERED: Potassium Chloride 20 MEQ in Premix Bag 1 BAG IVPB SCH (09:00)
[2021-05-19] MEDS ORDERED: Potassium Bicarbonate/Cit Ac 20 MEQ TAB PO SCH ×2 (09:00→10:30)
[2021-05-19] MEDS ORDERED: Amiodarone 450 MG in Dextrose 5% in Water 250 ML IVPB SCH ×2 (10:00→11:00)
[2021-05-19] MEDS: Micafungin 100 MG in Sodium Chloride 0.9% 100 ML IVPB SCH (10:19)
[2021-05-19] MEDS: hydrALAZINE 25 MG TAB PO SCH ×4 (10:21→20:02)
[2021-05-19] MEDS: Heparin 5,000 UNITS/ML VIAL SC SCH ×3 (10:21→20:02)
[2021-05-19] MEDS: Metoclopramide HCl 10 MG/2 ML VIAL IVP SCH ×4 (10:21→20:01)
[2021-05-19] MEDS: Metoprolol Tartrate 50 MG TAB PO SCH ×3 (10:22→20:02)
[2021-05-19] MEDS: Sodium Bicarbonate Tab 325 MG TAB PER TUBE SCH ×2 (10:22→20:02)
[2021-05-19] MEDS: Amlodipine 10 MG TAB PER TUBE SCH (10:22)
[2021-05-19] MEDS ORDERED: Amiodarone 150 MG in Dextrose 5% in Water 100 ML IVPB SCH (10:30)
[2021-05-19 10:50] LABS: ALT (SGPT) 16 U/L (8-55); AST (SGOT) 37 U/L (5-34); Albumin 2.3 g/dL (3.4-4.8); Alkaline Phosphatase 100 U/L (40-110); Bilirubin, Direct 0.2 mg/dL (0.1-0.3); Bilirubin, Total 0.3 mg/dL (0.2-1.2); Protein, Total 7.4 g/dL (5.8-8.1)
[2021-05-19] MEDS: Amiodarone In Dextrose 360 MG in Premix Bag 1 BAG IVPB SCH ×2 (11:38→17:06)
[2021-05-19] MEDS ORDERED: DEXTROSE IVPB SCH (11:45)
[2021-05-19] MEDS ORDERED: AMIODARONE IVPB SCH (11:45)
[2021-05-19] MEDS: Acetaminophen 325 MG TAB PO PRN (16:56)
[2021-05-19] MEDS: Famotidine/PF 20 mg/2ml Vial SLOW IVP SCH (20:01)
[2021-05-19] MEDS: Lantus 1000 UNITS/10 ML VIAL SC SCH (20:09)
[2021-05-20] MEDS: Dexmedetomidine In 0.9 % NaCl 400 MCG in Premix Bag 1 BAG IVPB SCH ×4 (02:38→22:40)
[2021-05-20] MEDS: Amiodarone In Dextrose 360 MG in Premix Bag 1 BAG IVPB SCH ×2 (03:21→16:01)
[2021-05-20 03:50] LABS: Hemoglobin 7.2 g/dL (12.0-15.5); Mean Corpuscular Volume 93.8 fl (81.6-98.3); Mean Platelet Volume 11.1 fl (7.4-10.4); Platelet Count 241 10x3/uL (150-450); RBC Distribution Width 15.1 % (11.5-14.5); White Blood Cell (WBC) Count 8.7 10x3/uL (3.5-10.5)
[2021-05-20 04:02] LABS: Anion Gap 16 mmol/L (10-20); BUN (Urea Nitrogen) 40 mg/dL (9.8-20.1); Calc. Creatinine Clearance 56 mL/min (70-130); Calcium 8.3 mg/dL (7.8-10.44); Carbon Dioxide 26 mmol/L (23-31); Chloride 106 mmol/L (98-107); Glucose 287 mg/dL (80-115); Sodium 145 mmol/L (136-145)
[2021-05-20 04:35] LABS: MDiff Complete? YES
[2021-05-20 04:48] LABS: Band 5 % (5-11); Eosinophils 3 % (0-10); Lymphocytes 19 % (21-51); Monocytes 11 % (0-10); Neutrophil 62 % (42-75)
[2021-05-20 04:49] LABS: Platelet Morphology Comment Appears Adequate; RBC Morphology Normal
[2021-05-20] MEDS: HumaLOG 300 UNITS/3 ML VIAL SC PRN ×2 (06:37→17:24)
[2021-05-20] MEDS: Acetaminophen 325 MG TAB PO PRN ×2 (06:40→20:41)
[2021-05-20] MEDS ORDERED: Potassium Bicarbonate/Cit Ac 20 MEQ TAB PO SCH (08:15)
[2021-05-20] MEDS: Micafungin 100 MG in Sodium Chloride 0.9% 100 ML IVPB SCH (08:46)
[2021-05-20] MEDS: Metoclopramide HCl 10 MG/2 ML VIAL IVP SCH ×4 (08:46→20:09)
[2021-05-20] MEDS: Heparin 5,000 UNITS/ML VIAL SC SCH ×3 (08:46→20:09)
[2021-05-20] MEDS: Amlodipine 10 MG TAB PER TUBE SCH (08:47)
[2021-05-20] MEDS: Sodium Bicarbonate Tab 325 MG TAB PER TUBE SCH ×2 (08:47→20:09)
[2021-05-20] MEDS: Metoprolol Tartrate 50 MG TAB PO SCH ×3 (08:47→20:09)
[2021-05-20] MEDS: hydrALAZINE 25 MG TAB PO SCH ×4 (08:48→20:09)
[2021-05-20] MEDS: Potassium Bicarbonate/Cit Ac 25 MEQ TAB PO SCH (17:31)
[2021-05-20] MEDS: Famotidine/PF 20 mg/2ml Vial SLOW IVP SCH (20:09)
[2021-05-20] MEDS: Lantus 1000 UNITS/10 ML VIAL SC SCH (20:11)
[2021-05-21 03:33] LABS: Hemoglobin 6.9 g/dL (12.0-15.5); Mean Corpuscular HGB CONC 31.9 g/dL (32.0-36.0); Mean Corpuscular Hemoglobin 30.1 pg (27.0-33.0); Mean Corpuscular Volume 94.3 fl (81.6-98.3); Mean Platelet Volume 11.3 fl (7.4-10.4); Platelet Count 245 10x3/uL (150-450); RBC Distribution Width 15.3 % (11.5-14.5); Red Blood Cell (RBC) Count 2.29 10x6/uL (3.90-5.03); White Blood Cell (WBC) Count 9.4 10x3/uL (3.5-10.5)
[2021-05-21 03:47] LABS: Anion Gap 14 mmol/L (10-20); BUN (Urea Nitrogen) 43 mg/dL (9.8-20.1); Calc. Creatinine Clearance 58 mL/min (70-130); Calcium 8.3 mg/dL (7.8-10.44); Carbon Dioxide 29 mmol/L (23-31); Chloride 105 mmol/L (98-107); Glucose 371 mg/dL (80-115); Potassium 3.4 mmol/L (3.5-5.1); Sodium 145 mmol/L (136-145)
[2021-05-21] MEDS: Amiodarone In Dextrose 360 MG in Premix Bag 1 BAG IVPB SCH (04:15)
[2021-05-21] MEDS: HumaLOG 300 UNITS/3 ML VIAL SC PRN ×4 (04:48→21:44)
[2021-05-21 06:34] LABS: MDiff Complete? YES; Platelet Morphology Comment Appears Adequate; RBC Morphology Normal
[2021-05-21 06:37] LABS: Band 1 % (5-11); Eosinophils 1 % (0-10); Lymphocytes 22 % (21-51); Monocytes 16 % (0-10); Neutrophil 59 % (42-75); Reactive Lymphocytes 1 % (0-10)
[2021-05-21] MEDS: Potassium Bicarbonate/Cit Ac 25 MEQ TAB PO SCH ×2 (08:32→17:01)
[2021-05-21] MEDS: Amlodipine 10 MG TAB PER TUBE SCH (08:32)
[2021-05-21] MEDS: Metoclopramide HCl 10 MG/2 ML VIAL IVP SCH ×4 (08:32→21:26)
[2021-05-21] MEDS: Heparin 5,000 UNITS/ML VIAL SC SCH ×3 (08:32→21:24)
[2021-05-21] MEDS: Sodium Bicarbonate Tab 325 MG TAB PER TUBE SCH ×2 (08:32→21:28)
[2021-05-21] MEDS: hydrALAZINE 25 MG TAB PO SCH ×4 (08:32→21:25)
[2021-05-21] MEDS: Metoprolol Tartrate 50 MG TAB PO SCH ×3 (08:33→21:27)
[2021-05-21] MEDS: Micafungin 100 MG in Sodium Chloride 0.9% 100 ML IVPB SCH (08:33)
[2021-05-21] MEDS: Dexmedetomidine In 0.9 % NaCl 400 MCG in Premix Bag 1 BAG IVPB SCH ×4 (10:29→23:55)
[2021-05-21] MEDS: Acetaminophen 325 MG TAB PO PRN (11:44)
[2021-05-21] MEDS: Famotidine/PF 20 mg/2ml Vial SLOW IVP SCH (21:24)
[2021-05-21] MEDS: Amiodarone 200 MG TAB PO SCH (21:24)
[2021-05-21] MEDS: Lantus 1000 UNITS/10 ML VIAL SC SCH (21:44)
[2021-05-22 04:11] LABS: Anion Gap 12 mmol/L (10-20); BUN (Urea Nitrogen) 42 mg/dL (9.8-20.1); Calc. Creatinine Clearance 61 mL/min (70-130); Calcium 8.5 mg/dL (7.8-10.44); Carbon Dioxide 30 mmol/L (23-31); Chloride 103 mmol/L (98-107); Glucose 302 mg/dL (80-115); Potassium 3.3 mmol/L (3.5-5.1); Sodium 142 mmol/L (136-145)
[2021-05-22 04:55] LABS: Mean Corpuscular HGB CONC 32.8 g/dL (32.0-36.0); Mean Corpuscular Hemoglobin 30.2 pg (27.0-33.0); Mean Corpuscular Volume 92.1 fl (81.6-98.3); Mean Platelet Volume 11.8 fl (7.4-10.4); Platelet Count 270 10x3/uL (150-450); RBC Distribution Width 15.1 % (11.5-14.5); Red Blood Cell (RBC) Count 2.65 10x6/uL (3.90-5.03); White Blood Cell (WBC) Count 9.5 10x3/uL (3.5-10.5)
[2021-05-22] MEDS ORDERED: Potassium Bicarbonate/Cit Ac 20 MEQ TAB PER TUBE SCH (05:15)
[2021-05-22 05:29] LABS: MDiff Complete? YES
[2021-05-22 05:35] LABS: Band 1 % (5-11); Eosinophils 2 % (0-10); Lymphocytes 19 % (21-51); Monocytes 15 % (0-10); Neutrophil 62 % (42-75)
[2021-05-22 05:36] LABS: Platelet Morphology Comment Appears Adequate; RBC Morphology Normal
[2021-05-22] MEDS: Acetaminophen 325 MG TAB PO PRN (05:59)
[2021-05-22] MEDS: Dexmedetomidine In 0.9 % NaCl 400 MCG in Premix Bag 1 BAG IVPB SCH ×4 (05:59→22:03)
[2021-05-22] MEDS: HumaLOG 300 UNITS/3 ML VIAL SC PRN ×3 (06:22→22:02)
[2021-05-22] MEDS: Amlodipine 10 MG TAB PER TUBE SCH (08:41)
[2021-05-22] MEDS: Metoprolol Tartrate 50 MG TAB PO SCH ×3 (08:41→21:24)
[2021-05-22] MEDS: Metoclopramide HCl 10 MG/2 ML VIAL IVP SCH ×4 (08:41→21:22)
[2021-05-22] MEDS: Amiodarone 200 MG TAB PO SCH ×2 (08:41→21:19)
[2021-05-22] MEDS: Sodium Bicarbonate Tab 325 MG TAB PER TUBE SCH ×2 (08:41→21:24)
[2021-05-22] MEDS: Micafungin 100 MG in Sodium Chloride 0.9% 100 ML IVPB SCH (08:43)
[2021-05-22] MEDS: hydrALAZINE 25 MG TAB PO SCH ×4 (08:43→21:21)
[2021-05-22] MEDS: Heparin 5,000 UNITS/ML VIAL SC SCH ×3 (08:44→21:20)
[2021-05-22] MEDS: Potassium Bicarbonate/Cit Ac 25 MEQ TAB PO SCH ×3 (08:45→21:25)
[2021-05-22 16:24] LABS: Reference Lab Name LABCORP
[2021-05-22 16:28] LABS: Ref Lab Test Ordered YEAST SENSITIVITY
[2021-05-22] MEDS: Famotidine/PF 20 mg/2ml Vial SLOW IVP SCH (21:19)
[2021-05-22] MEDS: Lantus 1000 UNITS/10 ML VIAL SC SCH (21:21)
[2021-05-23] MEDS ORDERED: Midazolam HCl 2 mg/2 ml Vial SLOW IVP PRN (02:08)
[2021-05-23] MEDS: Dexmedetomidine In 0.9 % NaCl 400 MCG in Premix Bag 1 BAG IVPB SCH ×4 (03:27→22:23)
[2021-05-23 04:30] LABS: Anion Gap 13 mmol/L (10-20); BUN (Urea Nitrogen) 44 mg/dL (9.8-20.1); Calc. Creatinine Clearance 62 mL/min (70-130); Calcium 8.7 mg/dL (7.8-10.44); Carbon Dioxide 32 mmol/L (23-31); Chloride 103 mmol/L (98-107); Glucose 186 mg/dL (80-115); Potassium 3.5 mmol/L (3.5-5.1); Sodium 144 mmol/L (136-145)
[2021-05-23] MEDS: HumaLOG 300 UNITS/3 ML VIAL SC PRN ×4 (05:22→22:37)
[2021-05-23] MEDS: Labetalol HCl 100 MG/20 ML VIAL SLOW IVP PRN ×2 (06:09→15:48)
[2021-05-23] MEDS: Sodium Bicarbonate Tab 325 MG TAB PER TUBE SCH ×2 (08:28→20:18)
[2021-05-23] MEDS: Potassium Bicarbonate/Cit Ac 20 MEQ TAB PO SCH (08:28)
[2021-05-23] MEDS: Metoclopramide HCl 10 MG/2 ML VIAL IVP SCH ×4 (08:28→20:18)
[2021-05-23] MEDS: Micafungin 100 MG in Sodium Chloride 0.9% 100 ML IVPB SCH (08:28)
[2021-05-23] MEDS: Heparin 5,000 UNITS/ML VIAL SC SCH ×3 (08:28→20:17)
[2021-05-23] MEDS: Metoprolol Tartrate 50 MG TAB PO SCH ×3 (08:29→20:18)
[2021-05-23] MEDS: Amiodarone 200 MG TAB PO SCH ×2 (08:29→20:17)
[2021-05-23] MEDS: hydrALAZINE 25 MG TAB PO SCH ×4 (08:29→20:17)
[2021-05-23] MEDS: Amlodipine 10 MG TAB PER TUBE SCH (08:29)
[2021-05-23] MEDS: Potassium Bicarbonate/Cit Ac 25 MEQ TAB PO SCH ×2 (10:15→15:47)
[2021-05-23] MEDS: hydrALAZINE 20 MG/ML VIAL SLOW IVP PRN (10:49)
[2021-05-23 15:13] LABS: A/G Ratio 0.4 (0.7-1.7); Albumin 2.1 g/dL (2.9-4.4); Alpha 1 0.5 g/dL (0.0-0.4); Alpha 2 1.2 g/dL (0.4-1.0); Beta 0.8 g/dL (0.7-1.3); Gamma 2.2 g/dL (0.4-1.8); Globulin, Total 4.7 g/dL (2.2-3.9); M-Spike Not Observed g/dL (Not Observed); Protein Electrophoresis Intrp Note: (.)
[2021-05-23] MEDS: Famotidine/PF 20 mg/2ml Vial SLOW IVP SCH (20:17)
[2021-05-23] MEDS: Lantus 1000 UNITS/10 ML VIAL SC SCH (20:17)
[2021-05-24] MEDS: Dexmedetomidine In 0.9 % NaCl 400 MCG in Premix Bag 1 BAG IVPB SCH ×3 (03:39→16:01)
[2021-05-24 04:24] LABS: Anion Gap 13 mmol/L (10-20); BUN (Urea Nitrogen) 38 mg/dL (9.8-20.1); Calc. Creatinine Clearance 61 mL/min (70-130); Calcium 8.7 mg/dL (7.8-10.44); Carbon Dioxide 34 mmol/L (23-31); Chloride 103 mmol/L (98-107); Glucose 169 mg/dL (80-115); Potassium 4.1 mmol/L (3.5-5.1); Sodium 146 mmol/L (136-145)
[2021-05-24] MEDS: HumaLOG 300 UNITS/3 ML VIAL SC PRN ×4 (06:06→21:58)
[2021-05-24 06:32] LABS: Magnesium 1.8 mg/dL (1.6-2.6)
[2021-05-24 06:50] LABS: Hemoglobin 7.7 g/dL (12.0-15.5); Mean Corpuscular HGB CONC 31.3 g/dL (32.0-36.0); Mean Corpuscular Hemoglobin 29.4 pg (27.0-33.0); Mean Corpuscular Volume 93.9 fl (81.6-98.3); Mean Platelet Volume 11.5 fl (7.4-10.4); Platelet Count 326 10x3/uL (150-450); RBC Distribution Width 15.3 % (11.5-14.5); Red Blood Cell (RBC) Count 2.62 10x6/uL (3.90-5.03); White Blood Cell (WBC) Count 7.6 10x3/uL (3.5-10.5)
[2021-05-24 06:52] LABS: MDiff Complete? YES
[2021-05-24 08:06] LABS: Eosinophils 4 % (0-10); Lymphocytes 26 % (21-51); Monocytes 13 % (0-10); Neutrophil 56 % (42-75); Reactive Lymphocytes 1 % (0-10)
[2021-05-24 08:07] LABS: Platelet Morphology Comment Appears Adequate
[2021-05-24 08:08] LABS: RBC Morphology Normal
[2021-05-24] MEDS: Micafungin 100 MG in Sodium Chloride 0.9% 100 ML IVPB SCH (08:46)
[2021-05-24] MEDS: Potassium Bicarbonate/Cit Ac 25 MEQ TAB PO SCH ×2 (08:46→16:01)
[2021-05-24] MEDS: hydrALAZINE 25 MG TAB PO SCH ×4 (08:47→20:54)
[2021-05-24] MEDS: Amlodipine 10 MG TAB PER TUBE SCH (08:47)
[2021-05-24] MEDS: Metoclopramide HCl 10 MG/2 ML VIAL IVP SCH ×4 (08:47→20:55)
[2021-05-24] MEDS: Potassium Bicarbonate/Cit Ac 20 MEQ TAB PO SCH (08:47)
[2021-05-24] MEDS: Heparin 5,000 UNITS/ML VIAL SC SCH ×3 (08:47→20:55)
[2021-05-24] MEDS: Sodium Bicarbonate Tab 325 MG TAB PER TUBE SCH ×2 (08:47→20:54)
[2021-05-24] MEDS: Metoprolol Tartrate 50 MG TAB PO SCH ×3 (08:48→20:54)
[2021-05-24] MEDS: Amiodarone 200 MG TAB PO SCH ×2 (08:48→20:54)
[2021-05-24 11:13] LABS: Yeast Identification Final report (.)
[2021-05-24 20:23] LABS: SARS-CoV-2 PCR by NAA Not Detected (NotDetected)
[2021-05-24] MEDS: Famotidine/PF 20 mg/2ml Vial SLOW IVP SCH (20:55)
[2021-05-24] MEDS: Lantus 1000 UNITS/10 ML VIAL SC SCH (20:56)
[2021-05-25] MEDS: hydrALAZINE 20 MG/ML VIAL SLOW IVP PRN (00:40)
[2021-05-25] MEDS: Dexmedetomidine In 0.9 % NaCl 400 MCG in Premix Bag 1 BAG IVPB SCH ×4 (02:19→20:49)
[2021-05-25 03:36] LABS: Hemoglobin 7.8 g/dL (12.0-15.5); MDiff Complete? YES; Manual Diff?? YES; Mean Corpuscular HGB CONC 31.3 g/dL (32.0-36.0); Mean Corpuscular Hemoglobin 29.3 pg (27.0-33.0); Mean Corpuscular Volume 93.6 fl (81.6-98.3); Mean Platelet Volume 11.4 fl (7.4-10.4); Platelet Count 362 10x3/uL (150-450); RBC Distribution Width 15.1 % (11.5-14.5); Red Blood Cell (RBC) Count 2.66 10x6/uL (3.90-5.03)
[2021-05-25 03:45] LABS: Anion Gap 12 mmol/L (10-20); BUN (Urea Nitrogen) 33 mg/dL (9.8-20.1); Calc. Creatinine Clearance 64 mL/min (70-130); Carbon Dioxide 35 mmol/L (23-31); Chloride 101 mmol/L (98-107); Glucose 140 mg/dL (80-115); Magnesium 1.7 mg/dL (1.6-2.6); Potassium 4.3 mmol/L (3.5-5.1); Sodium 144 mmol/L (136-145)
[2021-05-25] MEDS ORDERED: Scopolamine 1.5 mg/72 hour Patch TD SCH (03:45)
[2021-05-25 03:58] LABS: Band 2 % (5-11); Lymphocytes 15 % (21-51); Monocytes 15 % (0-10); Neutrophil 62 % (42-75); Reactive Lymphocytes 6 % (0-10)
[2021-05-25 03:59] LABS: Anisocytosis SLIGHT = 6-15 cells (100X) (0-5/hpf); Hypochromia MODERATE=16-30 cells (100X) (0-5/hpf); Platelet Morphology Comment Appears Adequate
[2021-05-25] MEDS: Metoclopramide HCl 10 MG/2 ML VIAL IVP SCH ×4 (08:28→21:31)
[2021-05-25] MEDS: Potassium Bicarbonate/Cit Ac 25 MEQ TAB PO SCH ×2 (08:28→16:14)
[2021-05-25] MEDS: Potassium Bicarbonate/Cit Ac 20 MEQ TAB PO SCH (08:28)
[2021-05-25] MEDS: Metoprolol Tartrate 50 MG TAB PO SCH ×3 (08:29→21:29)
[2021-05-25] MEDS: hydrALAZINE 25 MG TAB PO SCH ×4 (08:29→21:29)
[2021-05-25] MEDS: Heparin 5,000 UNITS/ML VIAL SC SCH ×3 (08:29→21:30)
[2021-05-25] MEDS: Sodium Bicarbonate Tab 325 MG TAB PER TUBE SCH ×2 (08:29→21:30)
[2021-05-25] MEDS: Amiodarone 200 MG TAB PO SCH ×2 (08:29→21:29)
[2021-05-25] MEDS: Amlodipine 10 MG TAB PER TUBE SCH (08:29)
[2021-05-25] MEDS: Famotidine/PF 20 mg/2ml Vial SLOW IVP SCH (21:30)
[2021-05-25] MEDS: Lantus 1000 UNITS/10 ML VIAL SC SCH (21:32)
[2021-05-25] MEDS: Simethicone 40 MG/0.6 ML Drop 30 ML BOT PO PRN (21:32)
[2021-05-26] MEDS: hydrALAZINE 20 MG/ML VIAL SLOW IVP PRN ×2 (01:28→10:10)
[2021-05-26 03:18] LABS: Hemoglobin 7.7 g/dL (12.0-15.5); MDiff Complete? YES; Mean Corpuscular HGB CONC 31.2 g/dL (32.0-36.0); Mean Corpuscular Hemoglobin 29.2 pg (27.0-33.0); Mean Corpuscular Volume 93.6 fl (81.6-98.3); Mean Platelet Volume 11.3 fl (7.4-10.4); Platelet Count 392 10x3/uL (150-450); Red Blood Cell (RBC) Count 2.64 10x6/uL (3.90-5.03)
[2021-05-26 03:42] LABS: Eosinophils 1 % (0-10); Lymphocytes 31 % (21-51); Monocytes 11 % (0-10); Neutrophil 57 % (42-75)
[2021-05-26 03:45] LABS: Anisocytosis SLIGHT = 6-15 cells (100X) (0-5/hpf); Hypochromia MODERATE=16-30 cells (100X) (0-5/hpf); Platelet Morphology Comment Appears Adequate
[2021-05-26 03:48] LABS: Anion Gap 13 mmol/L (10-20); BUN (Urea Nitrogen) 29 mg/dL (9.8-20.1); Calc. Creatinine Clearance 59 mL/min (70-130); Calcium 8.8 mg/dL (7.8-10.44); Carbon Dioxide 33 mmol/L (23-31); Chloride 100 mmol/L (98-107); Glucose 165 mg/dL (80-115); Magnesium 1.7 mg/dL (1.6-2.6); Sodium 142 mmol/L (136-145)
[2021-05-26] MEDS: Simethicone 40 MG/0.6 ML Drop 30 ML BOT PO PRN ×2 (05:53→12:04)
[2021-05-26] MEDS: Metoclopramide HCl 10 MG/2 ML VIAL IVP SCH ×4 (07:51→20:43)
[2021-05-26] MEDS: Potassium Bicarbonate/Cit Ac 20 MEQ TAB PO SCH (07:59)
[2021-05-26] MEDS: Amlodipine 10 MG TAB PER TUBE SCH (08:00)
[2021-05-26] MEDS: Heparin 5,000 UNITS/ML VIAL SC SCH ×3 (08:00→20:43)
[2021-05-26] MEDS: Metoprolol Tartrate 50 MG TAB PO SCH ×3 (08:00→20:43)
[2021-05-26] MEDS: hydrALAZINE 25 MG TAB PO SCH ×4 (08:01→20:43)
[2021-05-26] MEDS: Sodium Bicarbonate Tab 325 MG TAB PER TUBE SCH ×2 (08:01→20:46)
[2021-05-26] MEDS: Amiodarone 200 MG TAB PO SCH ×2 (08:01→20:46)
[2021-05-26] MEDS: Potassium Bicarbonate/Cit Ac 25 MEQ TAB PO SCH ×2 (09:00→16:19)
[2021-05-26] MEDS: Dexmedetomidine In 0.9 % NaCl 400 MCG in Premix Bag 1 BAG IVPB SCH ×2 (12:51→23:21)
[2021-05-26] MEDS: Famotidine/PF 20 mg/2ml Vial SLOW IVP SCH (20:43)
[2021-05-26] MEDS: Lantus 1000 UNITS/10 ML VIAL SC SCH (21:18)
[2021-05-27 04:14] LABS: Hemoglobin 8.2 g/dL (12.0-15.5); Mean Corpuscular HGB CONC 31.3 g/dL (32.0-36.0); Mean Corpuscular Hemoglobin 29.5 pg (27.0-33.0); Mean Corpuscular Volume 94.2 fl (81.6-98.3); Mean Platelet Volume 11.5 fl (7.4-10.4); Platelet Count 435 10x3/uL (150-450); Red Blood Cell (RBC) Count 2.78 10x6/uL (3.90-5.03); White Blood Cell (WBC) Count 8.6 10x3/uL (3.5-10.5)
[2021-05-27 04:50] LABS: Anion Gap 13 mmol/L (10-20); BUN (Urea Nitrogen) 27 mg/dL (9.8-20.1); Calc. Creatinine Clearance 57 mL/min (70-130); Calcium 8.7 mg/dL (7.8-10.44); Carbon Dioxide 32 mmol/L (23-31); Chloride 100 mmol/L (98-107); Glucose 95 mg/dL (80-115); Potassium 4.2 mmol/L (3.5-5.1); Sodium 141 mmol/L (136-145)
[2021-05-27] MEDS: hydrALAZINE 20 MG/ML VIAL SLOW IVP PRN (06:05)
[2021-05-27 06:22] LABS: MDiff Complete? YES; Platelet Morphology Comment Appears Adequate; RBC Morphology Normal
[2021-05-27 06:27] LABS: Eosinophils 3 % (0-10); Lymphocytes 37 % (21-51); Monocytes 5 % (0-10); Neutrophil 54 % (42-75)
[2021-05-27] MEDS: Dexmedetomidine In 0.9 % NaCl 400 MCG in Premix Bag 1 BAG IVPB SCH (09:06)
[2021-05-27] MEDS: Metoclopramide HCl 10 MG/2 ML VIAL IVP SCH (09:12)
[2021-05-27] MEDS: Potassium Bicarbonate/Cit Ac 20 MEQ TAB PO SCH (09:14)
[2021-05-27] MEDS: Potassium Bicarbonate/Cit Ac 25 MEQ TAB PO SCH (09:14)
[2021-05-27] MEDS: Amiodarone 200 MG TAB PO SCH ×2 (09:15→20:25)
[2021-05-27] MEDS: Amlodipine 10 MG TAB PER TUBE SCH (09:16)
[2021-05-27] MEDS: Heparin 5,000 UNITS/ML VIAL SC SCH ×3 (09:20→20:23)
[2021-05-27] MEDS: hydrALAZINE 25 MG TAB PO SCH ×4 (09:20→20:25)
[2021-05-27] MEDS: Metoprolol Tartrate 50 MG TAB PO SCH ×3 (09:20→20:25)
[2021-05-27] MEDS: Micafungin 100 MG in Sodium Chloride 0.9% 100 ML IVPB SCH (13:13)
[2021-05-27] MEDS: Sodium Bicarbonate Tab 325 MG TAB PER TUBE SCH (19:38)
[2021-05-27] MEDS: Famotidine/PF 20 mg/2ml Vial SLOW IVP SCH (20:23)
[2021-05-27] MEDS: Lantus 1000 UNITS/10 ML VIAL SC SCH (21:09)
[2021-05-28] MEDS: Scopolamine 1.5 mg/72 hour Patch TD SCH (03:46)
[2021-05-28 04:33] LABS: #Basophils 0.1 10x3/uL (0.0-0.2); #Eosinphils 0.3 10x3/uL (0.0-0.5); #Neutrophils 5.1 10x3/uL (1.5-8.4); %Basophils 0.6 % (0.0-2.0); %Eosinophils 3.3 % (0.0-6.0); %Lymphocytes 25.2 % (18.0-47.0); %Neutrophils 58.4 % (40.0-75.0); Mean Corpuscular HGB CONC 31.3 g/dL (32.0-36.0); Mean Corpuscular Hemoglobin 29.1 pg (27.0-33.0); Mean Corpuscular Volume 93.1 fl (81.6-98.3); Platelet Count 454 10x3/uL (150-450); Red Blood Cell (RBC) Count 2.75 10x6/uL (3.90-5.03); White Blood Cell (WBC) Count 8.7 10x3/uL (3.5-10.5)
[2021-05-28 04:58] LABS: ALT (SGPT) 19 U/L (8-55); AST (SGOT) 38 U/L (5-34); Albumin 2.9 g/dL (3.4-4.8); Alkaline Phosphatase 97 U/L (40-110); Anion Gap 14 mmol/L (10-20); BUN (Urea Nitrogen) 26 mg/dL (9.8-20.1); Bilirubin, Total 0.5 mg/dL (0.2-1.2); Calc. Creatinine Clearance 50 mL/min (70-130); Calcium 8.8 mg/dL (7.8-10.44); Carbon Dioxide 31 mmol/L (23-31); Chloride 101 mmol/L (98-107); Glucose 139 mg/dL (80-115); Potassium 3.9 mmol/L (3.5-5.1); Protein, Total 8.9 g/dL (5.8-8.1); Sodium 142 mmol/L (136-145)
[2021-05-28] MEDS: Heparin 5,000 UNITS/ML VIAL SC SCH ×3 (08:28→20:39)
[2021-05-28] MEDS: hydrALAZINE 25 MG TAB PO SCH ×4 (08:28→20:35)
[2021-05-28] MEDS: Amlodipine 10 MG TAB PER TUBE SCH (08:29)
[2021-05-28] MEDS: Amiodarone 200 MG TAB PO SCH ×2 (08:29→20:35)
[2021-05-28] MEDS: Metoprolol Tartrate 50 MG TAB PO SCH ×2 (08:29→20:36)
[2021-05-28] MEDS: Micafungin 100 MG in Sodium Chloride 0.9% 100 ML IVPB SCH (11:53)
[2021-05-28] MEDS: Simethicone 40 MG/0.6 ML Drop 30 ML BOT PO PRN (12:12)
[2021-05-28] MEDS: Lantus 1000 UNITS/10 ML VIAL SC SCH (20:34)
[2021-05-28] MEDS: HumaLOG 300 UNITS/3 ML VIAL SC PRN (20:35)
[2021-05-28] MEDS: Famotidine/PF 20 mg/2ml Vial SLOW IVP SCH (20:36)
[2021-05-29] MEDS: HumaLOG 300 UNITS/3 ML VIAL SC PRN (04:12)
[2021-05-29 04:59] LABS: Anion Gap 15 mmol/L (10-20); BUN (Urea Nitrogen) 28 mg/dL (9.8-20.1); Calc. Creatinine Clearance 47 mL/min (70-130); Calcium 8.5 mg/dL (7.8-10.44); Carbon Dioxide 27 mmol/L (23-31); Chloride 103 mmol/L (98-107); Glucose 209 mg/dL (80-115); Potassium 3.9 mmol/L (3.5-5.1); Sodium 141 mmol/L (136-145)
[2021-05-29] MEDS: Losartan 25 MG TAB PO SCH (08:18)
[2021-05-29] MEDS: hydrALAZINE 25 MG TAB PO SCH ×4 (08:19→22:44)
[2021-05-29] MEDS: Amlodipine 10 MG TAB PO SCH (08:19)
[2021-05-29] MEDS: Amiodarone 200 MG TAB PO SCH ×2 (08:19→22:46)
[2021-05-29] MEDS: Metoprolol Tartrate 50 MG TAB PO SCH ×2 (08:19→22:46)
[2021-05-29] MEDS: Heparin 5,000 UNITS/ML VIAL SC SCH ×3 (08:19→22:45)
[2021-05-29] MEDS ORDERED: NIFEdipine XL 60 MG TAB PO SCH (09:00)
[2021-05-29] MEDS: Micafungin 100 MG in Sodium Chloride 0.9% 100 ML IVPB SCH (12:18)
[2021-05-29] MEDS: Famotidine/PF 20 mg/2ml Vial SLOW IVP SCH (22:45)
[2021-05-29] MEDS: Lantus 1000 UNITS/10 ML VIAL SC SCH (22:46)
[2021-05-30 07:10] LABS: ALT (SGPT) 19 U/L (8-55); AST (SGOT) 35 U/L (5-34); Alkaline Phosphatase 97 U/L (40-110); Anion Gap 15 mmol/L (10-20); BUN (Urea Nitrogen) 28 mg/dL (9.8-20.1); Bilirubin, Total 0.5 mg/dL (0.2-1.2); Calc. Creatinine Clearance 47 mL/min (70-130); Calcium 8.9 mg/dL (7.8-10.44); Carbon Dioxide 25 mmol/L (23-31); Chloride 105 mmol/L (98-107); Globulin 6.4 g/dL (2.4-3.5); Glucose 144 mg/dL (80-115); Potassium 4.4 mmol/L (3.5-5.1); Protein, Total 9.4 g/dL (5.8-8.1); Sodium 141 mmol/L (136-145)
[2021-05-30 08:20] LABS: Platelet Count 476 10x3/uL (150-450)
[2021-05-30 08:21] LABS: Hemoglobin 7.9 g/dL (12.0-15.5); Mean Corpuscular HGB CONC 31.5 g/dL (32.0-36.0); Mean Corpuscular Hemoglobin 29.5 pg (27.0-33.0); Mean Corpuscular Volume 93.7 fl (81.6-98.3); Mean Platelet Volume 10.8 fl (7.4-10.4); RBC Distribution Width 14.6 % (11.5-14.5); Red Blood Cell (RBC) Count 2.68 10x6/uL (3.90-5.03)
[2021-05-30 08:46] LABS: MDiff Complete? YES
[2021-05-30] MEDS: Heparin 5,000 UNITS/ML VIAL SC SCH ×3 (08:46→22:34)
[2021-05-30] MEDS: Losartan 25 MG TAB PO SCH (08:46)
[2021-05-30] MEDS: Amiodarone 200 MG TAB PO SCH ×2 (08:47→22:30)
[2021-05-30] MEDS: Metoprolol Tartrate 50 MG TAB PO SCH ×2 (08:47→22:30)
[2021-05-30] MEDS: Amlodipine 10 MG TAB PO SCH (08:47)
[2021-05-30] MEDS: hydrALAZINE 25 MG TAB PO SCH ×4 (08:47→22:30)
[2021-05-30 08:51] LABS: Eosinophils 5 % (0-10); Lymphocytes 22 % (21-51); Monocytes 12 % (0-10); Neutrophil 61 % (42-75)
[2021-05-30 08:53] LABS: Hypochromia MARKED = >30 cells (100X) (0-5/hpf); Microcytosis MODERATE=15-30 cells (100X) (0-5/hpf); Platelet Morphology Comment Appears Increased
[2021-05-30] MEDS: Micafungin 100 MG in Sodium Chloride 0.9% 100 ML IVPB SCH (12:40)
[2021-05-30] MEDS: Famotidine/PF 20 mg/2ml Vial SLOW IVP SCH (22:34)
[2021-05-30] MEDS: Lantus 1000 UNITS/10 ML VIAL SC SCH (22:34)
[2021-05-31] MEDS: Scopolamine 1.5 mg/72 hour Patch TD SCH (03:16)
[2021-05-31] MEDS: Amiodarone 200 MG TAB PO SCH ×2 (09:13→23:29)
[2021-05-31] MEDS: Heparin 5,000 UNITS/ML VIAL SC SCH ×3 (09:13→23:29)
[2021-05-31] MEDS: hydrALAZINE 25 MG TAB PO SCH ×4 (09:14→23:29)
[2021-05-31] MEDS: Metoprolol Tartrate 50 MG TAB PO SCH ×2 (09:14→23:29)
[2021-05-31] MEDS: Losartan 25 MG TAB PO SCH (09:14)
[2021-05-31] MEDS: Amlodipine 10 MG TAB PO SCH (09:14)
[2021-05-31] MEDS: Micafungin 100 MG in Sodium Chloride 0.9% 100 ML IVPB SCH (12:24)
[2021-05-31] MEDS: Acetaminophen 325 MG TAB PO PRN (17:41)
[2021-05-31] MEDS ORDERED: Lantus 1000 UNITS/10 ML VIAL SC SCH (21:00)
[2021-05-31] MEDS: Famotidine/PF 20 mg/2ml Vial SLOW IVP SCH (23:29)
[2021-06-01] MEDS: Heparin 5,000 UNITS/ML VIAL SC SCH ×3 (08:01→21:24)
[2021-06-01] MEDS: Amlodipine 10 MG TAB PO SCH (08:02)
[2021-06-01] MEDS: Losartan 25 MG TAB PO SCH (08:02)
[2021-06-01] MEDS: hydrALAZINE 25 MG TAB PO SCH ×4 (08:02→21:25)
[2021-06-01] MEDS: Metoprolol Tartrate 50 MG TAB PO SCH ×2 (08:02→21:23)
[2021-06-01] MEDS: tiZANidine HCl 4 MG TAB PO SCH (08:02)
[2021-06-01] MEDS: Amiodarone 200 MG TAB PO SCH ×2 (08:02→21:24)
[2021-06-01] MEDS: Micafungin 100 MG in Sodium Chloride 0.9% 100 ML IVPB SCH (11:36)
[2021-06-01] MEDS: HumaLOG 300 UNITS/3 ML VIAL SC PRN ×2 (11:38→21:25)
[2021-06-01] MEDS: Acetaminophen 325 MG TAB PO PRN (18:01)
[2021-06-01] MEDS ORDERED: Lantus 1000 UNITS/10 ML VIAL SC SCH (21:00)
[2021-06-01] MEDS ORDERED: Lorazepam 0.5 MG TAB PO SCH (21:00)
[2021-06-01] MEDS: Famotidine/PF 20 mg/2ml Vial SLOW IVP SCH (21:24)
[2021-06-02] MEDS: HumaLOG 300 UNITS/3 ML VIAL SC PRN ×3 (00:55→21:53)
[2021-06-02 05:51] LABS: ALT (SGPT) 15 U/L (8-55); AST (SGOT) 28 U/L (5-34); Albumin 2.9 g/dL (3.4-4.8); Alkaline Phosphatase 87 U/L (40-110); Anion Gap 16 mmol/L (10-20); BUN (Urea Nitrogen) 33 mg/dL (9.8-20.1); Bilirubin, Total 0.4 mg/dL (0.2-1.2); Calc. Creatinine Clearance 44 mL/min (70-130); Calcium 8.8 mg/dL (7.8-10.44); Carbon Dioxide 25 mmol/L (23-31); Chloride 107 mmol/L (98-107); Globulin 6.2 g/dL (2.4-3.5); Glucose 109 mg/dL (80-115); Potassium 3.9 mmol/L (3.5-5.1); Protein, Total 9.1 g/dL (5.8-8.1); Sodium 144 mmol/L (136-145)
[2021-06-02] MEDS: Heparin 5,000 UNITS/ML VIAL SC SCH ×3 (10:29→21:53)
[2021-06-02] MEDS: tiZANidine HCl 4 MG TAB PO SCH (10:30)
[2021-06-02] MEDS: Losartan 25 MG TAB PO SCH (10:30)
[2021-06-02] MEDS: hydrALAZINE 25 MG TAB PO SCH ×4 (10:30→21:52)
[2021-06-02] MEDS: Amlodipine 10 MG TAB PO SCH (10:30)
[2021-06-02] MEDS: Acetaminophen 325 MG TAB PO PRN ×2 (10:30→21:50)
[2021-06-02] MEDS: Metoprolol Tartrate 50 MG TAB PO SCH ×2 (10:31→21:51)
[2021-06-02] MEDS: Amiodarone 200 MG TAB PO SCH ×2 (10:31→21:52)
[2021-06-02] MEDS: Micafungin 100 MG in Sodium Chloride 0.9% 100 ML IVPB SCH (12:31)
[2021-06-02] MEDS ORDERED: Lantus 1000 UNITS/10 ML VIAL SC SCH (21:00)
[2021-06-02] MEDS: Famotidine/PF 20 mg/2ml Vial SLOW IVP SCH (21:56)
[2021-06-03] MEDS: HumaLOG 300 UNITS/3 ML VIAL SC PRN (01:04)
[2021-06-03 01:26] LABS: SARS-CoV-2 PCR by NAA Not Detected (NotDetected)
[2021-06-03] MEDS: Scopolamine 1.5 mg/72 hour Patch TD SCH (02:53)
[2021-06-03 06:40] LABS: Anion Gap 16 mmol/L (10-20); BUN (Urea Nitrogen) 34 mg/dL (9.8-20.1); Calc. Creatinine Clearance 42 mL/min (70-130); Calcium 9.3 mg/dL (7.8-10.44); Carbon Dioxide 24 mmol/L (23-31); Chloride 107 mmol/L (98-107); Glucose 110 mg/dL (80-115); Potassium 4.4 mmol/L (3.5-5.1); Sodium 143 mmol/L (136-145)
[2021-06-03 06:48] LABS: #Basophils 0.1 10x3/uL (0.0-0.2); #Eosinphils 0.4 10x3/uL (0.0-0.5); #Monocytes 1.2 10x3/uL (0.0-1.1); #Neutrophils 4.3 10x3/uL (1.5-8.4); %Basophils 0.6 % (0.0-2.0); %Eosinophils 4.1 % (0.0-6.0); %Lymphocytes 31.7 % (18.0-47.0); %Monocytes 12.7 % (0.0-10.0); %Neutrophils 47.4 % (40.0-75.0); Hemoglobin 7.2 g/dL (12.0-15.5); Mean Corpuscular HGB CONC 32.1 g/dL (32.0-36.0); Mean Corpuscular Hemoglobin 29.4 pg (27.0-33.0); Mean Corpuscular Volume 91.4 fl (81.6-98.3); Mean Platelet Volume 11.9 fl (7.4-10.4); Platelet Count 438 10x3/uL (150-450); RBC Distribution Width 15.3 % (11.5-14.5); Red Blood Cell (RBC) Count 2.45 10x6/uL (3.90-5.03)
[2021-06-03 08:14] VITALS: BMI 43.6
[2021-06-03] MEDS: Heparin 5,000 UNITS/ML VIAL SC SCH ×2 (08:46→16:06)
[2021-06-03] MEDS: hydrALAZINE 25 MG TAB PO SCH ×3 (08:48→18:26)
[2021-06-03] MEDS: Amiodarone 200 MG TAB PO SCH (08:48)
[2021-06-03] MEDS: Amlodipine 10 MG TAB PO SCH (08:48)
[2021-06-03] MEDS: tiZANidine HCl 4 MG TAB PO SCH (08:49)
[2021-06-03] MEDS: Losartan 25 MG TAB PO SCH (08:50)
[2021-06-03] MEDS: Metoprolol Tartrate 50 MG TAB PO SCH (08:50)
[2021-06-03] MEDS: Lantus 1000 UNITS/10 ML VIAL SC SCH ×2 (08:51→15:52)
[2021-06-03] MEDS: Acetaminophen 325 MG TAB PO PRN (15:56)
[2021-06-03] MEDS: Micafungin 100 MG in Sodium Chloride 0.9% 100 ML IVPB SCH (15:56)
[2021-06-03] MEDS ORDERED: Lorazepam 0.5 MG TAB PO PRN (16:14)
[2021-06-03 23:36] VITALS: BP 144/74; TEMP 98.4
== END 2021-06-03 20:45 | disposition short-term general hospital (02) | DRG 4 ==
LOC: CSHERS 11:36 → CSHIMCU 16:15 → CSHTELE 05-29 17:02
PROVIDERS: ADMIT Internal Medicine; ATTEND Family Medicine
PROC: 5A1955Z Respiratory Ventilation, Greater than 96 Consecutive Hours (ICD-10-PCS; 2021-04-23)
PROC: 0BH18EZ Insertion of Endotracheal Airway into Trachea, Via Natural or Artificial Opening Endoscopic (ICD-10-PCS; 2021-04-23)
PROC: 02HV33Z Insertion of Infusion Device into Superior Vena Cava, Percutaneous Approach (ICD-10-PCS; 2021-04-23)
PROC: 5A1955Z Respiratory Ventilation, Greater than 96 Consecutive Hours (ICD-10-PCS; 2021-04-30)
PROC: 30233N1 Transfusion of Nonautologous Red Blood Cells into Peripheral Vein, Percutaneous Approach (ICD-10-PCS; 2021-05-06)
PROC: 0B113F4 Bypass Trachea to Cutaneous with Tracheostomy Device, Percutaneous Approach (ICD-10-PCS; principal; 2021-05-17)
PROC: 0DH64UZ Insertion of Feeding Device into Stomach, Percutaneous Endoscopic Approach (ICD-10-PCS; 2021-05-17)
PROC: 3E0G76Z Introduction of Nutritional Substance into Upper GI, Via Natural or Artificial Opening (ICD-10-PCS; 2021-05-17)
PROC: 0DJ08ZZ Inspection of Upper Intestinal Tract, Via Natural or Artificial Opening Endoscopic (ICD-10-PCS; 2021-05-17)
PROC: 02HV33Z Insertion of Infusion Device into Superior Vena Cava, Percutaneous Approach (ICD-10-PCS; 2021-05-19)
PROC: 02HV33Z Insertion of Infusion Device into Superior Vena Cava, Percutaneous Approach (ICD-10-PCS; 2021-05-24)
PROC: B548ZZA Ultrasonography of Superior Vena Cava, Guidance (ICD-10-PCS; 2021-05-24)
DX: A41.9 Sepsis, unspecified organism (principal); E11.01 Type 2 diabetes mellitus with hyperosmolarity with coma; J69.0 Pneumonitis due to inhalation of food and vomit; J96.01 Acute respiratory failure with hypoxia; Z20.822 Contact with and (suspected) exposure to COVID-19; G93.41 Metabolic encephalopathy; N17.0 Acute kidney failure with tubular necrosis; J15.211 Pneumonia due to Methicillin susceptible Staphylococcus aureus; I21.4 Non-ST elevation (NSTEMI) myocardial infarction; M62.82 Rhabdomyolysis; Z68.41 Body mass index [BMI] 40.0-44.9, adult; I47.1 Supraventricular tachycardia; E87.0 Hyperosmolality and hypernatremia; E46 Unspecified protein-calorie malnutrition; B49 Unspecified mycosis; N18.32 Chronic kidney disease, stage 3b; I49.8 Other specified cardiac arrhythmias; M10.9 Gout, unspecified; G40.909 Epilepsy, unspecified, not intractable, without status epilepticus; E66.01 Morbid (severe) obesity due to excess calories; E11.22 Type 2 diabetes mellitus with diabetic chronic kidney disease; D63.1 Anemia in chronic kidney disease; L98.419 Non-pressure chronic ulcer of buttock with unspecified severity; I12.9 Hypertensive chronic kidney disease with stage 1 through stage 4 chronic kidney disease, or unspecified chronic kidney disease; E78.5 Hyperlipidemia, unspecified; I16.0 Hypertensive urgency; E87.6 Hypokalemia; D89.2 Hypergammaglobulinemia, unspecified
CPT/HCPCS: 31500; 36415; 36416; 36430; 36556; 36569; 36600; 51702; 70450; 70551; 71045; 72125; 74018; 80048; 80053; 80061; 80076; 80177; 80202; 80306; 80307; 81001; 81003; 81015; 82010; 82274; 82550; 82553; 82805; 83036; 83605; 83735; 83880; 84100; 84145; 84165; 84443; 84484; 85025; 85610; 85730; 86850; 86900; 86901; 87040; 87070; 87071; 87077; 87086; 87106; 87186; 87205; 87449; 87899; 89220; 93005; 93010; 93306; 94002; 94003; 94640; 94667; 94668; 94669; 94760; 94762; 95816; 96365; 96366; 96367; 96368; 96375; 96376; A7521; B4087; C1751; J0171; J0282; J0360; J0456; J0690; J0692; J1644; J1815; J1940; J1953; J1956; J2060; J2248; J2250; J2543; J2704; J2765; J3010; J3370; J3475; J3480; J3490; J7042; J7050; J7070; J7620; P9016; P9047; S0020; S0028; U0002; U0003; U0005